=== PATIENT | male | born 1940 | race Two or more races ===

== ENCOUNTER 2023-02-14 23:18 | Inpatient (IN) | payer OTHER, MEDICAID ==
[~2023-02-14] VITALS: Ht 182.9 cm; Wt 66.5 kg
[2023-02-14 23:58] LABS: Basophils # (auto) 0 10 ^3/uL (0-0.2); Basophils % (auto) 0.5 % (0.0-2.0); Eosinophils # (auto) 0.3 10 ^3/uL (0-0.8); Eosinophils % (auto) 3.2 % (0.0-7.0); Hematocrit 36.5 % (41.0-53.0); Lymphocytes # (auto) 0.8 10 ^3/uL (0.4-5.4); Lymphocytes % (auto) 8.2 % (10.0-50.0); Mean Corpuscular Hemoglobin 31.1 pg (28.0-32.0); Mean Corpuscular Volume 94.4 fL (80.0-100.0); Monocytes # (auto) 0.7 10 ^3/uL (0-1.3); Monocytes % (auto) 7.1 % (0.0-12.0); Neutrophils # (auto) 7.7 10 ^3/uL (1.6-8.6); Nucleated Red Blood Cells % 0.2 %; Red Blood Cells 3.87 10^6/uL (4.5-5.90); White Blood Cell 9.5 10^3/uL (4.4-10.8)
[2023-02-15 00:08] LABS: Albumin 3.8 g/dL (3.4-5.0); BUN/Creatinine Ratio 23.3 (10.0-20.0); Calcium 9.4 mg/dL (8.5-10.1); Potassium 3.6 mmol/L (3.5-5.1)
[2023-02-15 00:11] LABS: Bilirubin, Total 0.5 mg/dL (0.2-1.0); Total Protein 8.8 g/dL (6.4-8.2)
[2023-02-15] MEDS ORDERED: SODIUM CHLORIDE 0.9% 1,000 ML IV ONE (05:00)
[2023-02-15] MEDS ORDERED: levoFLOXacin 750MG 150 ML IV ONE (05:00)
[2023-02-15] MEDS ORDERED: metroNIDAZOLE 500MG/100ML 100 ML IV ONE (05:00)
[2023-02-15] MEDS ORDERED: ACETAMINOPHEN 325 MG TAB PO PRN (06:00)
[2023-02-15] MEDS ORDERED: HYDROcodone-ACET 5/325MG TAB PO PRN (06:00)
[2023-02-15] MEDS ORDERED: MORPHINE SULFATE INJ 2 MG/ml SYRG IV PRN (06:00)
[2023-02-15] MEDS: metroNIDAZOLE 500MG/100ML 100 ML IV SCH ×3 (06:00→22:40)
[2023-02-15] MEDS ORDERED: ONDANSETRON HCL 4 MG/2 ML VIAL IV PRN (06:00)
[2023-02-15] MEDS ORDERED: NITROGLYCERIN 0.4 MG SL TAB SL PRN (06:00)
[2023-02-15] MEDS: SODIUM CHLORIDE 0.9% 1,000 ML IV SCH ×2 (06:34→22:40)
[2023-02-15 07:01] LABS: Basophils # (auto) 0 10 ^3/uL (0-0.2); Basophils % (auto) 0.4 % (0.0-2.0); Eosinophils # (auto) 0 10 ^3/uL (0-0.8); Eosinophils % (auto) 0.3 % (0.0-7.0); Hematocrit 31.2 % (41.0-53.0); Hemoglobin 10.6 g/dL (13.5-17.5); Lymphocytes # (auto) 0.2 10 ^3/uL (0.4-5.4); Lymphocytes % (auto) 3.9 % (10.0-50.0); Mean Corpuscular Hemoglobin 32.1 pg (28.0-32.0); Mean Corpuscular Hgb Conc. 33.9 g/dL (32.0-36.0); Mean Corpuscular Volume 94.5 fL (80.0-100.0); Monocytes # (auto) 0.2 10 ^3/uL (0-1.3); Monocytes % (auto) 5.1 % (0.0-12.0); Neutrophils # (auto) 3.9 10 ^3/uL (1.6-8.6); Neutrophils % (auto) 90.3 % (37.0-80.0); Nucleated Red Blood Cells % 0.1 %; White Blood Cell 4.3 10^3/uL (4.4-10.8)
[2023-02-15 07:28] LABS: Potassium 4.1 mmol/L (3.5-5.1)
[2023-02-15 07:50] LABS: Albumin 3.3 g/dL (3.4-5.0); Bilirubin, Total 0.5 mg/dL (0.2-1.0); Calcium 8.1 mg/dL (8.5-10.1); Total Protein 7.2 g/dL (6.4-8.2)
[2023-02-15] MEDS: FAMOTIDINE (10MG/ML) 2ML VL IV SCH ×2 (09:00→22:40)
[2023-02-16 05:01] LABS: Basophils # (auto) 0 10 ^3/uL (0-0.2); Eosinophils # (auto) 0.1 10 ^3/uL (0-0.8); Eosinophils % (auto) 5.2 % (0.0-7.0); Hematocrit 30.2 % (41.0-53.0); Hemoglobin 10.1 g/dL (13.5-17.5); Lymphocytes # (auto) 0.3 10 ^3/uL (0.4-5.4); Lymphocytes % (auto) 15.8 % (10.0-50.0); Mean Corpuscular Hemoglobin 31.7 pg (28.0-32.0); Mean Corpuscular Hgb Conc. 33.4 g/dL (32.0-36.0); Mean Corpuscular Volume 94.7 fL (80.0-100.0); Monocytes # (auto) 0.4 10 ^3/uL (0-1.3); Monocytes % (auto) 16.9 % (0.0-12.0); Neutrophils # (auto) 1.3 10 ^3/uL (1.6-8.6); Neutrophils % (auto) 61.1 % (37.0-80.0); Red Blood Cells 3.19 10^6/uL (4.5-5.90); Red Cell Distribution Width 13.2 % (11.8-14.3); White Blood Cell 2.2 10^3/uL (4.4-10.8)
[2023-02-16 05:31] LABS: Potassium 3.8 mmol/L (3.5-5.1)
[2023-02-16 05:42] LABS: Bilirubin, Total 0.6 mg/dL (0.2-1.0); Calcium 8.3 mg/dL (8.5-10.1); Total Protein 6.5 g/dL (6.4-8.2)
[2023-02-16] MEDS ORDERED: GASTROGRAFIN 30 ML SOL ONE (06:11)
[2023-02-16] MEDS: metroNIDAZOLE 500MG/100ML 100 ML IV SCH ×3 (07:26→22:01)
[2023-02-16] MEDS: FAMOTIDINE (10MG/ML) 2ML VL IV SCH ×2 (10:04→22:00)
[2023-02-16] MEDS ORDERED: CLON0.1T PO (15:24)
[2023-02-16] MEDS ORDERED: cefTRIAXone 1GM/50ML D5W 50 ML IV ONE (15:45)
[2023-02-16 15:56] LABS: Alcohol, Urine < 3.0 mg/dL (0-10); Amphetamine Screen, Urine NEGATIVE (NEGATIVE); Barbiturate Scree,Urine NEGATIVE (NEGATIVE); Benzodiazephine Screen, Urine NEGATIVE (NEGATIVE); Cannabinoid Screen, Urine NEGATIVE (NEGATIVE); Cocaine Screen, Urine NEGATIVE (NEGATIVE); Opiate Scree,Urine NEGATIVE (NEGATIVE); Phencyclidine Screen, Urine NEGATIVE (NEGATIVE)
[2023-02-16 16:15] VITALS: BP 185/63
[2023-02-16 16:44] LABS: Folate (Folic Acid) 20.28 ng/mL (5.38-24)
[2023-02-16] MEDS: hydrALAZINE HCL 20 MG/ML VL IV PRN (16:48)
[2023-02-16 17:00] VITALS: BP 185/63
[2023-02-16 21:19] LABS: Urine Bacteria NONE SEEN /hpf (None Seen); Urine Blood Negative /uL (Negative); Urine Specific Gravity 1.014 (1.001-1.035); Urine WBC 3 /hpf (0 - 3)
[2023-02-16 22:00] VITALS: BP 159/61
[2023-02-17 03:19] LABS: Urine Bacteria NONE SEEN /hpf (None Seen); Urine Blood Negative /uL (Negative); Urine Specific Gravity 1.008 (1.001-1.035); Urine WBC 1 /hpf (0 - 3)
[2023-02-17 05:00] VITALS: BP 151/61
[2023-02-17] MEDS: hydrALAZINE HCL 20 MG/ML VL IV PRN (05:00)
[2023-02-17] MEDS: metroNIDAZOLE 500MG/100ML 100 ML IV SCH (05:37)
[2023-02-17] MEDS: FAMOTIDINE (10MG/ML) 2ML VL IV SCH (08:42)
[2023-02-17 09:00] VITALS: BP 148/77
[2023-02-17] MEDS ORDERED: cefTRIAXone 1GM/50ML D5W 50 ML IV SCH (09:00)
[2023-02-17 09:01] LABS: Basophils # (auto) 0 10 ^3/uL (0-0.2); Basophils % (auto) 0.6 % (0.0-2.0); Eosinophils # (auto) 0.1 10 ^3/uL (0-0.8); Eosinophils % (auto) 3.2 % (0.0-7.0); Hematocrit 36.9 % (41.0-53.0); Hemoglobin 12.2 g/dL (13.5-17.5); Lymphocytes # (auto) 0.5 10 ^3/uL (0.4-5.4); Lymphocytes % (auto) 14.2 % (10.0-50.0); Mean Corpuscular Hemoglobin 31.3 pg (28.0-32.0); Mean Corpuscular Hgb Conc. 33.2 g/dL (32.0-36.0); Mean Corpuscular Volume 94.3 fL (80.0-100.0); Monocytes # (auto) 0.4 10 ^3/uL (0-1.3); Monocytes % (auto) 10.9 % (0.0-12.0); Neutrophils # (auto) 2.5 10 ^3/uL (1.6-8.6); Neutrophils % (auto) 71.1 % (37.0-80.0); Nucleated Red Blood Cells % 0.3 %; Red Blood Cells 3.91 10^6/uL (4.5-5.90); Red Cell Distribution Width 13.1 % (11.8-14.3); White Blood Cell 3.5 10^3/uL (4.4-10.8)
[2023-02-17 09:45] LABS: Potassium 3.8 mmol/L (3.5-5.1)
[2023-02-17 09:55] LABS: Calcium 8.9 mg/dL (8.5-10.1); Magnesium 1.9 mg/dL (1.6-2.6)
[2023-02-17] MEDS ORDERED: LEVO500T31 PO (10:03)
[2023-02-17] MEDS ORDERED: LACTCAP35 OR (10:04)
[2023-02-17] MEDS ORDERED: METR500T PO (10:04)
[2023-02-17 11:50] VITALS: BP 148/97
== END 2023-02-17 12:55 | disposition home or self-care (01) | DRG 392 ==
LOC: ER 23:18 → EDSEX 23:18 → EDBD 23:18 → OVERFLOW 02-15 06:01 → CENTRAL 02-16 16:15
PROVIDERS: ADMIT Nurse Practitioner Family; ATTEND Internal Medicine
DX: K52.9 Noninfective gastroenteritis and colitis, unspecified (principal); E86.0 Dehydration; D64.9 Anemia, unspecified; I34.1 Nonrheumatic mitral (valve) prolapse; N18.9 Chronic kidney disease, unspecified; R79.89 Other specified abnormal findings of blood chemistry; R73.9 Hyperglycemia, unspecified; Z85.038 Personal history of other malignant neoplasm of large intestine; Z88.0 Allergy status to penicillin; Z88.1 Allergy status to other antibiotic agents
CPT/HCPCS: 36415; 71045; 71250; 74176; 80048; 80053; 80307; 81001; 82105; 82378; 82607; 82746; 83605; 83735; 83880; 84154; 84443; 84484; 85025; 85048; 86301; 87045; 87427; 87493; 93005; 96365; 96367; 97163; G0378; J0696; J1956; J2405; J3490

== ENCOUNTER → 2023-03-06 | Emergency (ER) | payer OTHER, MEDICAID ==
[~2023-03-06] VITALS: Ht 165.1 cm; Wt 63.6 kg
[~2023-03-06] MED LIST: CLON0.1T PO; LACTCAP35 OR; LEVO500T31 PO; METR500T PO; PRED20TA2 PO; SODIUM CHLORIDE 0.9% 1,000 ML IV ONE; predniSONE 20 MG TAB PO ONE
[2023-03-06 10:01] VITALS: BP 176/53
[2023-03-06 10:18] LABS: Basophils # (auto) 0 10 ^3/uL (0-0.2); Basophils % (auto) 1.1 % (0.0-2.0); Eosinophils # (auto) 0.2 10 ^3/uL (0-0.8); Eosinophils % (auto) 4.9 % (0.0-7.0); Hemoglobin 11.1 g/dL (13.5-17.5); Lymphocytes % (auto) 25.3 % (10.0-50.0); Mean Corpuscular Hgb Conc. 32.7 g/dL (32.0-36.0); Mean Corpuscular Volume 94.7 fL (80.0-100.0); Monocytes # (auto) 0.5 10 ^3/uL (0-1.3); Monocytes % (auto) 13.1 % (0.0-12.0); Neutrophils # (auto) 2.1 10 ^3/uL (1.6-8.6); Neutrophils % (auto) 55.6 % (37.0-80.0); Nucleated Red Blood Cells % 0.2 %; Red Blood Cells 3.59 10^6/uL (4.5-5.90); Red Cell Distribution Width 13.4 % (11.8-14.3); White Blood Cell 3.8 10^3/uL (4.4-10.8)
[2023-03-06 10:44] LABS: Albumin 3.4 g/dL (3.4-5.0); Calcium 8.5 mg/dL (8.5-10.1); Potassium 4.4 mmol/L (3.5-5.1)
[2023-03-06 10:47] LABS: BUN/Creatinine Ratio 21.9 (10.0-20.0); Bilirubin, Total 0.4 mg/dL (0.2-1.0); Total Protein 7.5 g/dL (6.4-8.2)
[2023-03-06 16:46] LABS: Basophils # (auto) 0 10 ^3/uL (0-0.2); Eosinophils # (auto) 0.2 10 ^3/uL (0-0.8); Eosinophils % (auto) 4.3 % (0.0-7.0); Hematocrit 34.3 % (41.0-53.0); Hemoglobin 11.1 g/dL (13.5-17.5); Lymphocytes % (auto) 19.6 % (10.0-50.0); Mean Corpuscular Hemoglobin 30.7 pg (28.0-32.0); Mean Corpuscular Hgb Conc. 32.5 g/dL (32.0-36.0); Mean Corpuscular Volume 94.5 fL (80.0-100.0); Monocytes # (auto) 0.3 10 ^3/uL (0-1.3); Neutrophils # (auto) 3.4 10 ^3/uL (1.6-8.6); Neutrophils % (auto) 69.1 % (37.0-80.0); Nucleated Red Blood Cells % 0.1 %; Red Blood Cells 3.63 10^6/uL (4.5-5.90); Red Cell Distribution Width 13.1 % (11.8-14.3); White Blood Cell 4.9 10^3/uL (4.4-10.8)
== END | disposition home or self-care (01) ==
LOC: EDUNIT# 09:27 → ER 09:28 → EDBD 09:28
DX: K52.89 Other specified noninfective gastroenteritis and colitis (principal); K92.1 Melena; Z88.0 Allergy status to penicillin; Z88.1 Allergy status to other antibiotic agents; Z79.899 Other long term (current) drug therapy
CPT/HCPCS: 36415; 74176; 80053; 85025; 93005; 96360; 99284; J7030; J7512

== ENCOUNTER → 2023-07-30 | Outpatient (CLI) | payer OTHER, MEDICAID ==
[~2023-07-30] MED LIST changes: +CYAN500S8 SL; +FLUC200T PO; +PANT40TA2 PO; -SODIUM CHLORIDE 0.9% 1,000 ML IV ONE; -predniSONE 20 MG TAB PO ONE
[2023-07-30 12:25] LABS: Basophils # (auto) 0.1 10 ^3/uL (0-0.2); Basophils % (auto) 1.4 % (0.0-2.0); Eosinophils # (auto) 0.3 10 ^3/uL (0-0.8); Eosinophils % (auto) 6.2 % (0.0-7.0); Hematocrit 32.3 % (41.0-53.0); Hemoglobin 10.6 g/dL (13.5-17.5); Lymphocytes # (auto) 1.4 10 ^3/uL (0.4-5.4); Lymphocytes % (auto) 25.2 % (10.0-50.0); Mean Corpuscular Hemoglobin 30.2 pg (28.0-32.0); Mean Corpuscular Hgb Conc. 32.8 g/dL (32.0-36.0); Monocytes # (auto) 0.7 10 ^3/uL (0-1.3); Monocytes % (auto) 12.3 % (0.0-12.0); Neutrophils # (auto) 2.9 10 ^3/uL (1.6-8.6); Neutrophils % (auto) 54.9 % (37.0-80.0); Nucleated Red Blood Cells % 0.2 %; Red Blood Cells 3.51 10^6/uL (4.5-5.90); Red Cell Distribution Width 15.5 % (11.8-14.3); White Blood Cell 5.4 10^3/uL (4.4-10.8)
[2023-07-30 12:56] LABS: Alanine Aminotransferase < 9 U/L (7-40); Albumin 4.3 g/dL (3.2-4.8); Alkaline Phosphatase 85 U/L (46-116); Anion Gap 8 (5-15); Aspartate Aminotransferase 14 U/L (13-40); BUN/Creatinine Ratio 14.5 (10.0-20.0); Bilirubin, Total 0.7 mg/dL (0.2-1.0); Blood Urea Nitrogen 18 mg/dL (9-23); Calcium 9.6 mg/dL (8.5-10.1); Carbon Dioxide 26 mmol/L (20-30); Chloride 104 mmol/L (98-107); Glucose 87 mg/dL (74-106); Potassium 4.4 mmol/L (3.5-5.1); Sodium 138 mmol/L (136-145)
[2023-07-30 12:57] LABS: Total Protein 7.7 g/dL (5.7-8.2)
== END | disposition home or self-care (01) ==
LOC: LAB 12:04
PROVIDERS: ATTEND Internal Medicine Hematology & Oncology
DX: C18.9 Malignant neoplasm of colon, unspecified (principal); J44.9 Chronic obstructive pulmonary disease, unspecified; I10 Essential (primary) hypertension; Q39.3 Congenital stenosis and stricture of esophagus
CPT/HCPCS: 36415; 80053; 82378; 83615; 85025

== ENCOUNTER 2023-09-17 12:31 | Emergency (ER) | payer OTHER, MEDICAID ==
[~2023-09-17] VITALS: Ht 177.8 cm; Wt 77.0 kg
[2023-09-17 13:58] LABS: Basophils # (auto) 0 10 ^3/uL (0-0.2); Eosinophils # (auto) 0.3 10 ^3/uL (0-0.8); Eosinophils % (auto) 6.6 % (0.0-7.0); Hemoglobin 11.6 g/dL (13.5-17.5); Lymphocytes # (auto) 1.1 10 ^3/uL (0.4-5.4); Lymphocytes % (auto) 23.6 % (10.0-50.0); Mean Corpuscular Hemoglobin 30.4 pg (28.0-32.0); Mean Corpuscular Hgb Conc. 32.2 g/dL (32.0-36.0); Mean Corpuscular Volume 94.4 fL (80.0-100.0); Monocytes # (auto) 0.5 10 ^3/uL (0-1.3); Neutrophils # (auto) 2.7 10 ^3/uL (1.6-8.6); Neutrophils % (auto) 57.8 % (37.0-80.0); Nucleated Red Blood Cells % 0.1 %; Red Blood Cells 3.81 10^6/uL (4.5-5.90); Red Cell Distribution Width 15.3 % (11.8-14.3); White Blood Cell 4.7 10^3/uL (4.4-10.8)
[2023-09-17 14:17] LABS: Alanine Aminotransferase 13 U/L (7-40); Albumin 4.5 g/dL (3.2-4.8); Alkaline Phosphatase 76 U/L (46-116); Anion Gap 8 (5-15); Aspartate Aminotransferase 15 U/L (13-40); BUN/Creatinine Ratio 12.5 (10.0-20.0); Bilirubin, Total 0.6 mg/dL (0.2-1.0); Blood Urea Nitrogen 15 mg/dL (9-23); Calcium 9.6 mg/dL (8.5-10.1); Carbon Dioxide 25 mmol/L (20-30); Chloride 106 mmol/L (98-107); Glucose 85 mg/dL (74-106); Potassium 4.6 mmol/L (3.5-5.1); Sodium 139 mmol/L (136-145); Total Protein 7.9 g/dL (5.7-8.2)
[2023-09-17] MEDS ORDERED: IOHEXOL 350 MG/ML 100ML IJ ONE (15:55)
[2023-09-17 19:33] VITALS: BP 147/62; TEMP 98.6
[2023-09-17 19:40] VITALS: PULSE 65; RESP 18; O2SAT 98
[2023-09-17 19:48] LABS: Urine Amorphous Crystal FEW /hpf (None Seen); Urine Bacteria NONE SEEN /hpf (None Seen); Urine Blood Negative /uL (Negative); Urine Clarity Clear (Clear); Urine Color Colorless (Yellow); Urine Protein, UAD Negative (Negative); Urine Specific Gravity 1.007 (1.001-1.035); Urine Urobilinogen Normal (Negative); Urine WBC 13 /hpf (0 - 3)
== END 2023-09-17 23:51 | disposition home or self-care (01) ==
LOC: ER 12:31
DX: R79.89 Other specified abnormal findings of blood chemistry (principal); M79.89 Other specified soft tissue disorders; M79.662 Pain in left lower leg; I10 Essential (primary) hypertension; J44.9 Chronic obstructive pulmonary disease, unspecified; Z85.9 Personal history of malignant neoplasm, unspecified; Z98.890 Other specified postprocedural states; Z88.8 Allergy status to other drugs, medicaments and biological substances; Z79.899 Other long term (current) drug therapy
CPT/HCPCS: 36415; 71275; 80053; 81001; 85025; 85379; 93971; 99285; Q9967

== ENCOUNTER → 2023-10-20 | Outpatient (CLI) | payer OTHER, MEDICAID ==
[2023-10-20 11:32] LABS: Basophils # (auto) 0 10 ^3/uL (0-0.2); Basophils % (auto) 0.9 % (0.0-2.0); Eosinophils # (auto) 0.2 10 ^3/uL (0-0.8); Eosinophils % (auto) 4.1 % (0.0-7.0); Hematocrit 35.4 % (41.0-53.0); Hemoglobin 11.7 g/dL (13.5-17.5); Lymphocytes % (auto) 19.1 % (10.0-50.0); Mean Corpuscular Hemoglobin 30.7 pg (28.0-32.0); Mean Corpuscular Hgb Conc. 33.2 g/dL (32.0-36.0); Mean Corpuscular Volume 92.6 fL (80.0-100.0); Monocytes # (auto) 0.5 10 ^3/uL (0-1.3); Monocytes % (auto) 9.9 % (0.0-12.0); Neutrophils # (auto) 3.3 10 ^3/uL (1.6-8.6); Red Blood Cells 3.83 10^6/uL (4.5-5.90); Red Cell Distribution Width 14.9 % (11.8-14.3)
[2023-10-20 12:29] LABS: Alkaline Phosphatase 82 U/L (46-116); Anion Gap 8 (5-15); BUN/Creatinine Ratio 12.6 (10.0-20.0); Blood Urea Nitrogen 17 mg/dL (9-23); Calcium 9.7 mg/dL (8.5-10.1); Carbon Dioxide 25 mmol/L (20-30); Chloride 105 mmol/L (98-107); Glucose 82 mg/dL (74-106); LDL Cholesterol 108 mg/dL (< 100); Sodium 138 mmol/L (136-145); Triglycerides 88 mg/dL (< 150)
[2023-10-20 12:30] LABS: Albumin 4.5 g/dL (3.2-4.8); Aspartate Aminotransferase 17 U/L (13-40); Bilirubin, Total 0.8 mg/dL (0.2-1.0); Cholesterol 150 mg/dL (< 200); HDL Cholesterol 37 mg/dL (40-59)
[2023-10-20 12:31] LABS: Total Protein 8.2 g/dL (5.7-8.2)
[2023-10-20 12:37] LABS: Thyroid Stimulating Hormone 2.22 uIU/mL (0.55-4.78)
[2023-10-20 12:59] LABS: Alanine Aminotransferase < 9 U/L (7-40)
[2023-10-20 13:48] LABS: Prostate Specific Antigen 0.13 ng/mL (0.0-4.0)
[2023-10-20 13:52] LABS: Free T4 (Free Thyroxine) 1.03 ng/dL (0.89-1.76)
[2023-10-20 13:53] LABS: Carcinoembryonic Antigen 2.56 ng/mL (<=5.0)
== END | disposition home or self-care (01) ==
LOC: LAB 10:58
PROVIDERS: ATTEND Nurse Practitioner Family
DX: C18.9 Malignant neoplasm of colon, unspecified (principal); I10 Essential (primary) hypertension; J44.9 Chronic obstructive pulmonary disease, unspecified; Q39.3 Congenital stenosis and stricture of esophagus; D64.9 Anemia, unspecified; R35.1 Nocturia
CPT/HCPCS: 36415; 80053; 80061; 82378; 83615; 84153; 84439; 84443; 85025

== ENCOUNTER 2023-11-10 14:57 | Inpatient (IN) | payer OTHER, MEDICAID ==
[~2023-11-10] VITALS: Ht 177.8 cm; Wt 63.7 kg
[2023-11-10 16:30] VITALS: BP 145/54; PULSE 74; RESP 17; TEMP 96.3; O2SAT 96
[2023-11-10] MEDS ORDERED: ACETAMINOPHEN 325 MG TAB PO PRN (17:15)
[2023-11-10] MEDS ORDERED: LORazepam 0.5 MG TAB PO PRN (17:15)
[2023-11-10] MEDS ORDERED: MORPHINE SULFATE INJ 2 MG/ml SYRG IV PRN (17:15)
[2023-11-10] MEDS ORDERED: ONDANSETRON HCL 4 MG/2 ML VIAL IV PRN (17:15)
[2023-11-10] MEDS ORDERED: HYDROcodone-ACET 5/325MG TAB PO PRN (17:15)
[2023-11-10] MEDS: SODIUM CHLORIDE 0.9% 1,000 ML IV SCH (18:19)
[2023-11-10] MEDS: MULTIPLE VITAMINS W/ MINERALS TAB PO ONE (18:19)
[2023-11-10] MEDS: ENOXAPARIN SOD 40 MG/0.4 ML SYRINGE SC SCH (18:19)
[2023-11-10] MEDS: levoFLOXacin 500 MG TAB PO SCH (18:19)
[2023-11-10 18:49] LABS: Urine Bacteria NONE SEEN /hpf (None Seen); Urine Blood Negative /uL (Negative); Urine Clarity Clear (Clear); Urine Color Colorless (Yellow); Urine Protein, UAD Negative (Negative); Urine Specific Gravity 1.007 (1.001-1.035); Urine Urobilinogen Normal (Negative); Urine WBC 3 /hpf (0 - 3); Urine pH 6.5 (5.0-8.0)
[2023-11-10 20:51] VITALS: BP 145/54; PULSE 74; RESP 17; TEMP 97.6; O2SAT 97
[2023-11-10 22:00] VITALS: BP 143/59; PULSE 72; RESP 16; TEMP 98.1; O2SAT 97
[2023-11-10] MEDS: FLORASTOR (S. BOULARDII) 250 MG CAP PO SCH (22:14)
[2023-11-10] MEDS: metroNIDAZOLE 500 MG TAB PO SCH (22:15)
[2023-11-11] MEDS: hydrALAZINE HCL 25 MG TAB PO PRN (04:39)
[2023-11-11 05:00] VITALS: BP 173/61; PULSE 75; RESP 16; TEMP 97.3; O2SAT 96
[2023-11-11 05:52] VITALS: BP 155/59; PULSE 71
[2023-11-11 06:57] LABS: Anion Gap 5 (5-15); Carbon Dioxide 25 mmol/L (20-30); Chloride 108 mmol/L (98-107); Potassium 4.1 mmol/L (3.5-5.1); Sodium 138 mmol/L (136-145)
[2023-11-11 06:58] LABS: Calcium 8.5 mg/dL (8.7-10.4)
[2023-11-11 07:00] LABS: Basophils # (auto) 0.1 10 ^3/uL (0-0.2); Basophils % (auto) 1.6 % (0.0-2.0); Eosinophils # (auto) 0.2 10 ^3/uL (0-0.8); Eosinophils % (auto) 7.7 % (0.0-7.0); Hematocrit 32.9 % (41.0-53.0); Hemoglobin 10.8 g/dL (13.5-17.5); Lymphocytes # (auto) 0.7 10 ^3/uL (0.4-5.4); Mean Corpuscular Hemoglobin 30.6 pg (28.0-32.0); Mean Corpuscular Hgb Conc. 32.8 g/dL (32.0-36.0); Mean Corpuscular Volume 93.3 fL (80.0-100.0); Monocytes # (auto) 0.5 10 ^3/uL (0-1.3); Monocytes % (auto) 15.5 % (0.0-12.0); Neutrophils # (auto) 1.7 10 ^3/uL (1.6-8.6); Neutrophils % (auto) 53.2 % (37.0-80.0); Nucleated Red Blood Cells % 0.1 %; Red Blood Cells 3.53 10^6/uL (4.5-5.90); Red Cell Distribution Width 13.9 % (11.8-14.3); White Blood Cell 3.2 10^3/uL (4.4-10.8)
[2023-11-11 07:03] LABS: BUN/Creatinine Ratio 11.7 (10.0-20.0); Blood Urea Nitrogen 16 mg/dL (9-23); Glucose 93 mg/dL (74-106)
[2023-11-11] MEDS: MULTIPLE VITAMINS W/ MINERALS TAB PO SCH (09:13)
[2023-11-11] MEDS: cloNIDine HCL 0.1 MG TAB PO SCH (09:39)
[2023-11-11] MEDS ORDERED: LEVO500T91 PO (13:58)
[2023-11-11] MEDS ORDERED: SACC250C PO (13:58)
[2023-11-11] MEDS ORDERED: METR-344 PO (13:58)
[2023-11-11 15:57] VITALS: BP 134/56; TEMP 36.3
== END 2023-11-11 16:40 | disposition home or self-care (01) | DRG 392 ==
LOC: TELE-CENTR 16:15 → CENTRAL 17:11
PROVIDERS: ADMIT Internal Medicine; ATTEND Internal Medicine
DX: K52.9 Noninfective gastroenteritis and colitis, unspecified (principal); D61.818 Other pancytopenia; I10 Essential (primary) hypertension; R13.10 Dysphagia, unspecified; Z88.0 Allergy status to penicillin; Z88.1 Allergy status to other antibiotic agents; Z88.6 Allergy status to analgesic agent; Z86.010 Personal history of colon polyps; Z79.899 Other long term (current) drug therapy; Z87.19 Personal history of other diseases of the digestive system; Z85.038 Personal history of other malignant neoplasm of large intestine
CPT/HCPCS: 36415; 76700; 80048; 81001; 83735; 85025; 85048; 87045; 87427; 97163; G0378

== ENCOUNTER → 2023-11-19 | Outpatient (CLI) | payer OTHER, MEDICAID ==
[~2023-11-19] MED LIST changes: -FLUC200T PO; -LACTCAP35 OR; -LEVO500T31 PO; +LEVO500T91 PO; +METR-344 PO; -METR500T PO; -PRED20TA2 PO; +SACC250C PO
[2023-11-19 13:05] LABS: Basophils # (auto) 0.1 10 ^3/uL (0-0.2); Basophils % (auto) 1.3 % (0.0-2.0); Eosinophils # (auto) 0.3 10 ^3/uL (0-0.8); Eosinophils % (auto) 5.9 % (0.0-7.0); Hematocrit 35.1 % (41.0-53.0); Hemoglobin 11.4 g/dL (13.5-17.5); Lymphocytes # (auto) 1.2 10 ^3/uL (0.4-5.4); Lymphocytes % (auto) 26.2 % (10.0-50.0); Mean Corpuscular Hemoglobin 30.5 pg (28.0-32.0); Mean Corpuscular Hgb Conc. 32.6 g/dL (32.0-36.0); Mean Corpuscular Volume 93.6 fL (80.0-100.0); Monocytes # (auto) 0.5 10 ^3/uL (0-1.3); Monocytes % (auto) 10.2 % (0.0-12.0); Neutrophils # (auto) 2.7 10 ^3/uL (1.6-8.6); Neutrophils % (auto) 56.4 % (37.0-80.0); Nucleated Red Blood Cells % 0.1 %; Red Blood Cells 3.75 10^6/uL (4.5-5.90); Red Cell Distribution Width 14.4 % (11.8-14.3); White Blood Cell 4.7 10^3/uL (4.4-10.8)
[2023-11-19 13:39] LABS: Albumin 4.3 g/dL (3.2-4.8); Alkaline Phosphatase 62 U/L (46-116); Anion Gap 7 (5-15); Aspartate Aminotransferase 16 U/L (13-40); BUN/Creatinine Ratio 14.5 (10.0-20.0); Blood Urea Nitrogen 16 mg/dL (9-23); Carbon Dioxide 27 mmol/L (20-30); Chloride 106 mmol/L (98-107); Glucose 76 mg/dL (74-106); Potassium 3.7 mmol/L (3.5-5.1); Sodium 140 mmol/L (136-145)
[2023-11-19 13:40] LABS: Bilirubin, Total 0.6 mg/dL (0.2-1.0); Total Protein 7.4 g/dL (5.7-8.2)
[2023-11-19 13:42] LABS: Alanine Aminotransferase < 9 U/L (7-40)
== END | disposition home or self-care (01) ==
LOC: LAB 12:40
PROVIDERS: ATTEND Nurse Practitioner Family
DX: C18.9 Malignant neoplasm of colon, unspecified (principal); I10 Essential (primary) hypertension; J44.9 Chronic obstructive pulmonary disease, unspecified; Q39.3 Congenital stenosis and stricture of esophagus; K59.04 Chronic idiopathic constipation; D64.9 Anemia, unspecified
CPT/HCPCS: 36415; 80053; 82378; 83615; 85025

== ENCOUNTER 2024-01-29 09:56 | Day surgery (SDC) | payer OTHER, MEDICAID ==
[2024-01-27 13:57] LABS: Albumin 4.3 g/dL (3.2-4.8); Alkaline Phosphatase 68 U/L (46-116); Anion Gap 6 (5-15); Aspartate Aminotransferase 17 U/L (13-40); BUN/Creatinine Ratio 19.7 (10.0-20.0); Blood Urea Nitrogen 25 mg/dL (9-23); Calcium 9.7 mg/dL (8.5-10.1); Carbon Dioxide 29 mmol/L (20-30); Chloride 103 mmol/L (98-107); Glucose 98 mg/dL (74-106); Potassium 3.9 mmol/L (3.5-5.1); Sodium 138 mmol/L (136-145)
[2024-01-27 13:58] LABS: Basophils # (auto) 0 10 ^3/uL (0-0.2); Basophils % (auto) 0.9 % (0.0-2.0); Bilirubin, Total 0.6 mg/dL (0.2-1.0); Eosinophils # (auto) 0.2 10 ^3/uL (0-0.8); Eosinophils % (auto) 4.9 % (0.0-7.0); Hemoglobin 10.9 g/dL (13.5-17.5); Lymphocytes # (auto) 1.2 10 ^3/uL (0.4-5.4); Lymphocytes % (auto) 23.9 % (10.0-50.0); Mean Corpuscular Volume 93.8 fL (80.0-100.0); Monocytes # (auto) 0.7 10 ^3/uL (0-1.3); Monocytes % (auto) 13.4 % (0.0-12.0); Neutrophils # (auto) 2.9 10 ^3/uL (1.6-8.6); Neutrophils % (auto) 56.9 % (37.0-80.0); Nucleated Red Blood Cells % 0.2 %; Red Blood Cells 3.52 10^6/uL (4.5-5.90); Red Cell Distribution Width 14.6 % (11.8-14.3); Total Protein 7.7 g/dL (5.7-8.2); White Blood Cell 5.1 10^3/uL (4.4-10.8)
[2024-01-27 14:07] LABS: Alanine Aminotransferase < 9 U/L (7-40)
[2024-01-27 14:51] LABS: INR 1.04 (0.9-1.15); Partial Thromboplastin Time 30.3 SEC (24.5-34.5)
[~2024-01-29] VITALS: Ht 177.8 cm; Wt 62.6 kg
[~2024-01-29 09:56] MED LIST changes: +CETI-83 OR; -LEVO500T91 PO; -METR-344 PO; +OLME5TAB22 PO; -PANT40TA2 PO; -SACC250C PO
[2024-01-29] MEDS ORDERED: MIDAZOLAM HCL 5 MG/ML-1ML VIAL ONE (10:13)
[2024-01-29] MEDS ORDERED: LIDOCAINE VISCOUS 2% 15ML UD ONE (10:13)
[2024-01-29] MEDS ORDERED: SODIUM CHLORIDE LOCK 10 ML ONE (10:13)
[2024-01-29] MEDS ORDERED: fentaNYL CITRATE 100 MCG/2 ML VL ONE (10:14)
[2024-01-29] MEDS ORDERED: diphenhdrAMINE HCL 50 MG/1 ML VL ONE (10:14)
[2024-01-29] MEDS: MIDAZOLAM HCL 5 MG/ML-1ML VIAL IV ONE (13:08)
[2024-01-29 13:24] VITALS: TEMP 97.1
[2024-01-29 15:30] VITALS: BP 154/56; PULSE 67; RESP 13; O2SAT 96
== END 2024-01-29 14:15 | disposition home or self-care (01) ==
LOC: GI 09:56
PROVIDERS: ATTEND Internal Medicine Gastroenterology
DX: R13.12 Dysphagia, oropharyngeal phase (principal); K29.50 Unspecified chronic gastritis without bleeding; K20.90 Esophagitis, unspecified without bleeding; K22.5 Diverticulum of esophagus, acquired; K22.89 Other specified disease of esophagus; K29.80 Duodenitis without bleeding; K22.2 Esophageal obstruction; K25.9 Gastric ulcer, unspecified as acute or chronic, without hemorrhage or perforation; I10 Essential (primary) hypertension; J44.9 Chronic obstructive pulmonary disease, unspecified; Z85.038 Personal history of other malignant neoplasm of large intestine; Z79.899 Other long term (current) drug therapy; Z98.41 Cataract extraction status, right eye; Z98.42 Cataract extraction status, left eye; Z98.890 Other specified postprocedural states; Z88.8 Allergy status to other drugs, medicaments and biological substances; Z88.6 Allergy status to analgesic agent; Z88.1 Allergy status to other antibiotic agents; Z88.0 Allergy status to penicillin
CPT/HCPCS: 36415; 43239; 43450; 80053; 85025; 85610; 85730; 88305; 88342; J1200; J2250; J3010; J7030

== ENCOUNTER 2024-06-02 09:25 | Inpatient (IN) | payer OTHER, MEDICAID ==
[~2024-06-02] VITALS: Ht 179.1 cm; Wt 73.2 kg
[2024-06-02 13:54] LABS: Basophils # (auto) 0 10 ^3/uL (0-0.2); Basophils % (auto) 1.1 % (0.0-2.0); Eosinophils # (auto) 0.1 10 ^3/uL (0-0.8); Eosinophils % (auto) 3.1 % (0.0-7.0); Hematocrit 35.4 % (41.0-53.0); Hemoglobin 11.8 g/dL (13.5-17.5); Lymphocytes # (auto) 1.1 10 ^3/uL (0.4-5.4); Lymphocytes % (auto) 25.2 % (10.0-50.0); Mean Corpuscular Hemoglobin 31.4 pg (28.0-32.0); Mean Corpuscular Hgb Conc. 33.5 g/dL (32.0-36.0); Mean Corpuscular Volume 93.9 fL (80.0-100.0); Monocytes # (auto) 0.5 10 ^3/uL (0-1.3); Neutrophils # (auto) 2.7 10 ^3/uL (1.6-8.6); Neutrophils % (auto) 59.6 % (37.0-80.0); Nucleated Red Blood Cells % 0.1 %; Platelet Count (auto) 147 10^3/uL (140-450); Red Blood Cells 3.77 10^6/uL (4.5-5.90); Red Cell Distribution Width 14.7 % (11.8-14.3); White Blood Cell 4.5 10^3/uL (4.4-10.8)
[2024-06-02 14:15] LABS: INR 1.1 (0.9-1.15); Prothrombin Time 11.6 sec (9.3-11.8)
[2024-06-02] MEDS ORDERED: ONDANSETRON HCL 4 MG/2 ML VIAL IV PRN (15:00)
[2024-06-02] MEDS ORDERED: OLMESARTAN MEDOXOMIL 5 MG PO SCH (15:00)
[2024-06-02] MEDS ORDERED: HYDROmorphone HCL 2 MG/ML VL/or syr IV PRN (15:00)
[2024-06-02] MEDS ORDERED: HYDROcodone-ACET 5/325MG TAB PO PRN (15:00)
[2024-06-02] MEDS ORDERED: ACETAMINOPHEN 325 MG TAB PO PRN (15:00)
[2024-06-02] MEDS: D5W/LACTATED RINGERS 1,000 ML IV ONE (15:49)
[2024-06-02] MEDS: GLUCAGON EMERG KIT 1mg/1ml IV ONE (16:05)
[2024-06-02] MEDS: PANTOPRAZOLE 40 MG/10 ML VIAL INJ IV ONE (16:06)
[2024-06-02] MEDS: LOSARTAN POTASSIUM 50 MG TAB PO SCH (16:08)
[2024-06-02 20:58] VITALS: BP 180/74; PULSE 66; RESP 18; TEMP 97.4; O2SAT 98
[2024-06-02 21:03] VITALS: PULSE 66; RESP 18; O2SAT 98
[2024-06-02] MEDS: SODIUM CHLOR 0.9% PF (SALINE LOCK) 10ML VIAL/SYR IV SCH (22:16)
[2024-06-03] VITALS (9 sets, daily range): BP systolic 135–163; BP diastolic 45–72; PULSE 52–94; RESP 12–19; TEMP 97.6–98.5; O2SAT 94–100
[2024-06-03] MEDS: CYANOCOBALAMIN 500 MCG SL SCH (06:33)
[2024-06-03 09:54] LABS: Basophils # (auto) 0 10 ^3/uL (0-0.2); Eosinophils # (auto) 0.1 10 ^3/uL (0-0.8); Eosinophils % (auto) 3.8 % (0.0-7.0); Hematocrit 35.8 % (41.0-53.0); Hemoglobin 11.8 g/dL (13.5-17.5); Lymphocytes # (auto) 0.8 10 ^3/uL (0.4-5.4); Lymphocytes % (auto) 20.9 % (10.0-50.0); Mean Corpuscular Hemoglobin 31.5 pg (28.0-32.0); Mean Corpuscular Volume 95.4 fL (80.0-100.0); Monocytes # (auto) 0.3 10 ^3/uL (0-1.3); Monocytes % (auto) 8.2 % (0.0-12.0); Neutrophils # (auto) 2.6 10 ^3/uL (1.6-8.6); Neutrophils % (auto) 66.1 % (37.0-80.0); Nucleated Red Blood Cells % 0.1 %; Platelet Count (auto) 135 10^3/uL (140-450); Red Blood Cells 3.76 10^6/uL (4.5-5.90); Red Cell Distribution Width 14.5 % (11.8-14.3)
[2024-06-03 10:06] LABS: Chloride 108 mmol/L (98-107); Potassium 4.3 mmol/L (3.5-5.1); Sodium 138 mmol/L (136-145)
[2024-06-03 10:07] LABS: Anion Gap 5 (5-15); Calcium 9.7 mg/dL (8.7-10.4); Carbon Dioxide 25 mmol/L (20-30)
[2024-06-03 10:12] LABS: Blood Urea Nitrogen 15 mg/dL (9-23); Glucose 73 mg/dL (74-106)
[2024-06-03] MEDS: PANTOPRAZOLE 40 MG/10 ML VIAL INJ IV ONE (13:01)
[2024-06-03] MEDS ORDERED: FERR325T20 PO (14:16)
[2024-06-03] MEDS ORDERED: CETI10TA2 PO (14:16)
[2024-06-03] MEDS ORDERED: MIDAZOLAM HCL 2MG/2ML 2ml VIAL (1mg/ml) ONE (16:23)
[2024-06-03] MEDS ORDERED: PROPOFOL 10 MG/ML 20 ML IV ONE (16:37)
[2024-06-03] MEDS ORDERED: ONDANSETRON HCL 4 MG/2 ML VIAL IV ONE (17:00)
[2024-06-04 01:00] VITALS: BP 142/62; PULSE 55; RESP 16; TEMP 98.1; O2SAT 96
[2024-06-04 05:00] VITALS: BP 151/71; PULSE 55; RESP 16; TEMP 97.9; O2SAT 96
[2024-06-04 06:49] LABS: Basophils # (auto) 0 10 ^3/uL (0-0.2); Basophils % (auto) 0.9 % (0.0-2.0); Eosinophils # (auto) 0.2 10 ^3/uL (0-0.8); Eosinophils % (auto) 4.8 % (0.0-7.0); Hematocrit 37.3 % (41.0-53.0); Hemoglobin 12.5 g/dL (13.5-17.5); Lymphocytes # (auto) 1.2 10 ^3/uL (0.4-5.4); Lymphocytes % (auto) 28.5 % (10.0-50.0); Mean Corpuscular Hemoglobin 31.7 pg (28.0-32.0); Mean Corpuscular Hgb Conc. 33.5 g/dL (32.0-36.0); Mean Corpuscular Volume 94.7 fL (80.0-100.0); Monocytes # (auto) 0.5 10 ^3/uL (0-1.3); Monocytes % (auto) 11.4 % (0.0-12.0); Neutrophils # (auto) 2.2 10 ^3/uL (1.6-8.6); Neutrophils % (auto) 54.4 % (37.0-80.0); Nucleated Red Blood Cells % 0.1 %; Platelet Count (auto) 148 10^3/uL (140-450); Red Blood Cells 3.94 10^6/uL (4.5-5.90); Red Cell Distribution Width 14.2 % (11.8-14.3); White Blood Cell 4.1 10^3/uL (4.4-10.8)
[2024-06-04 09:52] VITALS: BP 144/76; PULSE 68; RESP 19; TEMP 98.5; O2SAT 98
[2024-06-04] MEDS: NIFEdipine ER 30 MG TAB PO SCH (10:41)
[2024-06-04] MEDS: PANTOPRAZOLE 40 MG TAB PO ONE (10:42)
[2024-06-04] MEDS ORDERED: PANT40T PO (14:57)
[2024-06-04 15:28] VITALS: BP 158/66; PULSE 63; RESP 19; TEMP 98.6; O2SAT 98
[2024-06-04] MEDS ORDERED: PANTOPRAZOLE 40 MG TAB PO SCH (17:00)
[2024-06-04] MEDS: CYANOCOBALAMIN 500 MCG TAB PO ONE (17:08)
[2024-06-04 17:26] VITALS: BP 148/61; PULSE 76; RESP 18; TEMP 98.5; O2SAT 97
[2024-06-04] MEDS ORDERED: KETAMINE 50mg/ML 1ml syringe IM ONE (17:32)
[2024-06-05] MEDS ORDERED: CYANOCOBALAMIN 500 MCG TAB PO SCH (10:00)
== END 2024-06-04 17:33 | disposition home or self-care (01) | DRG 381 ==
LOC: ER 09:25 → EDBD 09:25 → OVERFLOW 15:03 → EAST 20:58
PROVIDERS: ADMIT Internal Medicine; ATTEND Internal Medicine
PROC: 0DB68ZX Excision of Stomach, Via Natural or Artificial Opening Endoscopic, Diagnostic (ICD-10-PCS; 2024-06-03)
PROC: 0DB48ZX Excision of Esophagogastric Junction, Via Natural or Artificial Opening Endoscopic, Diagnostic (ICD-10-PCS; principal; 2024-06-03 16:11)
DX: K22.70 Barrett's esophagus without dysplasia (principal); Q39.6 Congenital diverticulum of esophagus; K44.9 Diaphragmatic hernia without obstruction or gangrene; K29.70 Gastritis, unspecified, without bleeding; J44.9 Chronic obstructive pulmonary disease, unspecified; I10 Essential (primary) hypertension; W44.9XXA Unspecified foreign body entering into or through a natural orifice, initial encounter; K22.89 Other specified disease of esophagus; Z88.0 Allergy status to penicillin; Z88.6 Allergy status to analgesic agent; Z88.1 Allergy status to other antibiotic agents; Z90.49 Acquired absence of other specified parts of digestive tract; Z87.891 Personal history of nicotine dependence
CPT/HCPCS: 36415; 71046; 80048; 85025; 85610; 93005; G0378; J2250; J2470; J2704

== ENCOUNTER 2024-06-26 10:12 | Emergency (ER) | payer OTHER, MEDICAID ==
[~2024-06-26] VITALS: Ht 177.8 cm; Wt 68.0 kg
[~2024-06-26 10:12] MED LIST changes: -CETI-83 OR; +CETI10TA2 PO; -CYAN500S8 SL; +FERR325T20 PO; +PANT40T PO
[2024-06-26 10:41] VITALS: BP 143/89; PULSE 71; RESP 18; TEMP 98.4; O2SAT 98
[2024-06-26] MEDS ORDERED: BACDST PO (10:56)
== END 2024-06-26 11:00 | disposition home or self-care (01) ==
LOC: ER 10:12
DX: M79.641 Pain in right hand (principal); I10 Essential (primary) hypertension; J44.9 Chronic obstructive pulmonary disease, unspecified; Z79.899 Other long term (current) drug therapy; Z90.49 Acquired absence of other specified parts of digestive tract; Z90.89 Acquired absence of other organs; Z98.890 Other specified postprocedural states; Z88.0 Allergy status to penicillin; Z88.1 Allergy status to other antibiotic agents; Z88.6 Allergy status to analgesic agent; W55.03XA Scratched by cat, initial encounter; Y93.89 Activity, other specified; Y92.89 Other specified places as the place of occurrence of the external cause; Y99.8 Other external cause status

== ENCOUNTER 2024-10-14 08:14 | Inpatient (IN) | payer OTHER, MEDICAID ==
[~2024-10-14] VITALS: Ht 177.8 cm; Wt 62.0 kg
[2024-10-14] VITALS (10 sets, daily range): BP systolic 102–118; BP diastolic 36–53; PULSE 70–80; RESP 16–22; TEMP 98–98.2; O2SAT 95–99
[~2024-10-14 08:14] MED LIST changes: +BACDST PO
--- NOTE | 2024-10-14 09:23 | ED.PDOC ---
SOB-HPI HPI Comments 83 year old male brought in by EMS presents to the ED with a chief complaint of shortness of breath onset 1 week. Patient states he has been experiencing shortness of breath with dizziness, dry cough, fever for the past week. Patient also noticed intermittent RT leg pain/swelling. PMHx HTN, COPD, colon cancer. He has been non compliant with medication for the past 3 days. Denies chills, sweats, headache, nausea, vomiting, diarrhea. No other symptoms or modifying factors present at this time. Chief Complaint: Shortness of Breath Time Seen by MD: 09:09 Primary Care Provider: JONAH Joyce notes: Medications, Allergies Information Source: Patient, Emergency Med Personnel Mode of Arrival: EMS Severity: Moderate Timing: Weeks Duration: Since onset Context: At Rest PE Risk Factors: None History of: COPD Prehospital treatment: None Associated Signs and Symptoms: Fever, Cough Radiation: No Radiation If cough with SOB: Non-Productive Past Medical History PAST MEDICAL HISTORY: Cancer, COPD, HTN Surgical History: Appendectomy, Hernia Repair, Tonsillectomy Family History Family History: Reviewed,noncontributory to illness Social History Smoker: Non-Smoker Alcohol: Denies ETOH Use Drugs: Denies Drug Use Lives In: Home Constitutional: reports: fever; denies: chills, diaphoresis, fatigue, malaise, sweats, weakness, others EENTM: denies: blurred vision, double vision, ear bleeding, ear discharge, ear drainage, ear pain, ear ringing, eye pain, eye redness, hearing loss, mouth pain, mouth swelling, nasal discharge, nose bleeding, nose congestion, nose pain, photophobia, tearing, throat pain, throat swelling, voice changes, others Respiratory: reports: cough, shortness of breath; denies: hemoptysis, orthopnea, SOB at rest, SOB with excertion, stridor, wheezing, others Cardiovascular: denies: chest pain, dizzy spells, diaphoresis, Dyspnea on exertion, edema, irregular heart beat, left arm pain, lightheadedness, palpitations, PND, syncope, others Gastrointestinal: denies: abdomen distended, abdominal pain, blood streaked bowels, constipated, diarrhea, dysphagia, difficulty swallowing, hematemesis, melena, nausea, poor appetite, poor fluid intake, rectal bleeding, rectal pain, vomiting, others Genitourinary: denies: burning, dysuria, flank pain, frequency, hematuria, incontinence, penile discharge, penile sore, pain, testicle pain, testicle swelling, urgency, others Neurological: reports: dizziness; denies: fainting, headache, left sided numbness, left sided weakness, numbness, paresthesia, pre-existing deficit, right sided numbness, right sided weakness, seizure, speech problems, tingling, tremors, weakness, others Musculoskeletal: reports: others (RT leg swelling ); denies: back pain, gout, joint pain, joint swelling, muscle pain, muscle stiffness, neck pain Integumetry: denies: bruises, change in color, change in hair/nails, dryness, laceration, lesions, lumps, rash, wounds, others Allergic/Immunocompromised: denies: Difficulty Healing, Frequent Infections, Hives, Itching, others Hematologic/Lymphatic: denies: anemia, blood clots, easy bleeding, easy bruising, swollen glands, others Endocrine: denies: excessive hunger, excessive sweating, excessive thirst, excessive urination, flushing, intolerance to cold, intolerance to heat, unexplained weight gain, unexplained weight loss, others Psychiatric: denies: anxiety, bipolar disorder, depression, hopeless, panic disorder, schizophrenia, sleepless, suicidal, others All Other Systems: Reviewed and Negative Physical Exam General Appearance: Mild Distress, Moderate Distress HEENT: Normal ENT Inspection, PERRL/EOMI Neck: Full Range of Motion, Non-Tender, Normal, Normal Inspection Respiratory: Crackles, Decreased Breath Sounds, Expiration, Inspiration, No Respiratory Distress, Rhonchi Cardiovascular: No Edema, No JVD, No Murmur, No Gallop, Normal Peripheral Pulses, Regular Rate/Rhythm Breast Exam: Deferred Gastrointestinal: No Organomegaly, Non Tender, No Pulsatile Mass, Normal Bowel Sounds, Soft Genitalia: Deferred Pelvic: Deferred Rectal: Deferred Extremities: No calf tenderness, Normal capillary refill, Normal inspection, Normal range of motion, Non-tender, No pedal edema, Swelling, Other (Left leg swollen more than right) Neurologic: Alert, Motor Weakness Cerebellar Function: Normal Reflexes: NOT DONE Skin: Dry, Normal Color, Warm Peripheral Pulses: 1+ carotid (R), 1+ carotid (L) Lymphatic: No Adenopathy EKG EKG : Pulse Rate (adult): 84 [place]: Normal Cardiac Rhythm: NSR Was a procedure done? Was a procedure done?: No Differential Dx Differential Diagnosis: Bronchitis, CHF, COPD, Hypertension, Hyponatremia, Pneumonia, URI X-Ray, Labs, Meds, VS Vital Signs Date Time Temp Pulse Resp B/P (MAP) Pulse Ox O2 Delivery O2 Flow Rate FiO2 10/14/24 10:53 80 22 96 Nasal Cannula* 2 28 10/14/24 10:52 97.8 80 22 156/65 (95) 96 97.8 10/14/24 10:52 156/65 10/14/24 10:19 84 10/14/24 09:47 180/67 10/14/24 08:48 97.8 81 22 178/70 (106) 95 97.8 10/14/24 08:32 97.5 81 20 202/78 (119) 96 10/14/24 08:32 20 Nasal Cannula 2.0 10/14/24 08:17 84 Lab Test 10/14/24 09:44 Range/Units White Blood Count 5.6 4.4-10.8 10^3/uL Red Blood Count 4.07 L 4.5-5.90 10^6/uL Hemoglobin 13.2 L 13.5-17.5 g/dL Hematocrit 39.1 L 41.0-53.0 % Mean Corpuscular Volume 95.9 80.0-100.0 fL Mean Corpuscular Hemoglobin 32.4 H 28.0-32.0 pg Mean Corpuscular Hemoglobin Concent 33.8 32.0-36.0 g/dL Red Cell Distribution Width 13.6 11.8-14.3 % Platelet Count 126 L 140-450 10^3/uL Mean Platelet Volume 9.2 6.9-10.8 fL Neutrophils (%) (Auto) 81.8 H 37.0-80.0 % Lymphocytes (%) (Auto) 7.6 L 10.0-50.0 % Monocytes (%) (Auto) 8.6 0.0-12.0 % Eosinophils (%) (Auto) 1.4 0.0-7.0 % Basophils (%) (Auto) 0.6 0.0-2.0 % Neutrophils # (Auto) 4.6 1.6-8.6 10 ^3/uL Lymphocytes # (Auto) 0.4 0.4-5.4 10 ^3/uL Monocytes # (Auto) 0.5 0-1.3 10 ^3/uL Eosinophils # (Auto) 0.1 0-0.8 10 ^3/uL Basophils # (Auto) 0 0-0.2 10 ^3/uL Nucleated Red Blood Cells 0.1 % D-Dimer, Quantitative 3.29 H 0.0-0.49 mg/L FEU Sodium Level 138 136-145 mmol/L Potassium Level 3.6 3.5-5.1 mmol/L Chloride Level 103 98-107 mmol/L Carbon Dioxide Level 26 20-31 mmol/L Anion Gap 9 5-15 Blood Urea Nitrogen 20 9-23 mg/dL Creatinine 1.42 H 0.700-1.30 mg/dL Glomerular Filtration Rate Calc 50 >90 mL/min BUN/Creatinine Ratio 14.1 10.0-20.0 Serum Glucose 94 74-106 mg/dL Calcium Level 10.5 H 8.7-10.4 mg/dL Magnesium Level 1.6 1.6-2.6 mg/dL Total Bilirubin 0.9 0.2-1.0 mg/dL Aspartate Amino Transferase (AST) 14 13-40 U/L Alanine Aminotransferase (ALT) < 9 7-40 U/L Alkaline Phosphatase 89 46-116 U/L Troponin I High Sensitivity 16 </=54 ng/L B-Type Natriuretic Peptide 313.70 0-100 pg/mL Total Protein 8.5 H 5.7-8.2 g/dL Albumin 5.1 H 3.2-4.8 g/dL Current Medications Medications (Trade) Dose Ordered Sig/Chano Route Start Time Stop Time Status Last Admin Sodium Chloride 1,000 ml @ 150 mls/hr Q6H40M ONCE IV 10/14/24 09:30 10/14/24 16:09 DC 10/14/24 09:39 Clonidine HCl (Catapres Tablet) 0.2 mg ONCE ONCE PO 10/14/24 09:30 10/14/24 09:31 DC 10/14/24 09:[address] [address] Ph: [phone] DIAGNOSTIC IMAGING Diagnostic Imaging Report : [id number] Signed PATIENT: CEDRICK KABA ACCT: [id number] UNIT: [id number] : 1940 LOC: ER ROOM / BED: / AGE / SEX: 83 / M ADM STATUS: REG ER SERVICE 6 ORDERING PHYSICIAN: PRESTON ROJAS MD PROCEDURE(s): CXR2 - CHEST TWO VIEWS ROUTINE REASON: sob ORDER NUMBER(s): [id number], ACCESSION NUMBER(s): [id number] XY CHEST TWO VIEWS ROUTINE, HISTORY: sob COMPARISON: XY CHEST TWO VIEWS ROUTINE on DOS: 06/02/24 XY CHEST TWO VIEWS ROUTINE on DOS: 06/02/24 TECHNICAL DATA: 1 view of the chest was obtained. FINDINGS: Lines and tubes: None Cardiomediastinal silhouette: normal Pulmonary vasculature: normal Lung expansion: normal Lung airspace: normal Lung interstitium: normal Pleura: normal Pneumothorax: no Bones: Unremarkable Other: no IMPRESSION: No acute intrathoracic abnormality. ATED BY: STEFAN JARAMILLO MD DICTATED DATE/TIME: 10/14/24937 SIGNED BY: STEFAN JARAMILLO MD SIGNED DATE/TIME: 10/14/24937 CC: X-Ray, Labs, Meds, VS Comment Course in the emergency department eventful Patient came in with a blood pressure of 202/76 blood sugar of 107 complaining of shortness of breath and unable to bring back thick flank The chest x-ray is normal EKG shows normal sinus rhythm at 84 CBC 5600 with 82% neutrophils and normal H&H GFR of 50 Magnesium 1.6 Troponin 16 Patient will need to be hydrated and medicated We will be admitted for further care Time of 1ST Reevaluation: 09:39 Reevaluation 1ST: Unchanged Patient Education/Counseling: Diagnosis, Treatment, Prognosis Family Education/Counseling: No Family Present Additional Information The following tests were ordered, and results were reviewed by me: EKG, CBC, CMP, MAGNESIUM, XR CHEST 2 VIEWS, TROP Additional Information was gathered from interviewing the following independent historians: EMS I reviewed and agreed with the following test results read by other providers: XR CHEST 2 VIEWS, I discussed treatment and results with medical personnel and: patient Departure 1 Departure Time of Disposition: 11:30 Impression: Primary Impression: COPD (chronic obstructive pulmonary disease) Qualified Codes: J43.2 - Centrilobular emphysema Additional Impressions: Severe dehydration CKD (chronic kidney disease) Uncontrolled hypertension Left leg swelling Disposition: ADMITTED INPATIENT Admit to: Tele Condition: Fair Critical Care Note Critical Care Time?: No Stability Stability form required: Yes Unstable for transfer: Telemetry monitoring (Telemetry monitoring required), Requires medication (Requires Med for stabilization) Heart Score Heart Score: Heart Score Response (Comments) Value History Slightly Suspicious 0 EKG Normal 0 Age >65 2 Risk Factors 1 or 2 risk factors 1 Troponin Normal limit 0 Total 3 I personally scribed for PRESTON ROJAS MD ([email or web address]) on 10/14/24 at 09:23. Electronically submitted by Keya Lane ([email or web address]). I personally scribed for PRESTON ROJAS MD ([email or web address]) on 10/14/24 at 11:46. Electronically submitted by Keya Lane [email or web address]). PRESTON ROJAS MD Oct 14, 2024 09:23
[2024-10-14] MEDS: SODIUM CHLORIDE 0.9% 1,000 ML IV ONE (09:39)
--- NOTE | 2024-10-14 09:40 | DVH ---
XY CHEST TWO VIEWS ROUTINE, HISTORY: sob COMPARISON: XY CHEST TWO VIEWS ROUTINE on DOS: 06/02/24 XY CHEST TWO VIEWS ROUTINE on DOS: 06/02/24 TECHNICAL DATA: 1 view of the chest was obtained. FINDINGS: Lines and tubes: None Cardiomediastinal silhouette: normal Pulmonary vasculature: normal Lung expansion: normal Lung airspace: normal Lung interstitium: normal Pleura: normal Pneumothorax: no Bones: Unremarkable Other: no IMPRESSION: No acute intrathoracic abnormality.
[2024-10-14] MEDS: cloNIDine HCL 0.1 MG TAB PO ONE (09:47)
[2024-10-14 10:05] LABS: Basophils # (auto) 0 10 ^3/uL (0-0.2); Basophils % (auto) 0.6 % (0.0-2.0); Eosinophils # (auto) 0.1 10 ^3/uL (0-0.8); Eosinophils % (auto) 1.4 % (0.0-7.0); Hematocrit 39.1 % (41.0-53.0); Hemoglobin 13.2 g/dL (13.5-17.5); Lymphocytes # (auto) 0.4 10 ^3/uL (0.4-5.4); Lymphocytes % (auto) 7.6 % (10.0-50.0); Mean Corpuscular Hemoglobin 32.4 pg (28.0-32.0); Mean Corpuscular Hgb Conc. 33.8 g/dL (32.0-36.0); Mean Corpuscular Volume 95.9 fL (80.0-100.0); Monocytes # (auto) 0.5 10 ^3/uL (0-1.3); Monocytes % (auto) 8.6 % (0.0-12.0); Neutrophils # (auto) 4.6 10 ^3/uL (1.6-8.6); Neutrophils % (auto) 81.8 % (37.0-80.0); Nucleated Red Blood Cells % 0.1 %; Platelet Count (auto) 126 10^3/uL (140-450); Red Blood Cells 4.07 10^6/uL (4.5-5.90); Red Cell Distribution Width 13.6 % (11.8-14.3); White Blood Cell 5.6 10^3/uL (4.4-10.8)
[2024-10-14 10:13] LABS: Alkaline Phosphatase 89 U/L (46-116); Anion Gap 9 (5-15); Aspartate Aminotransferase 14 U/L (13-40); BUN/Creatinine Ratio 14.1 (10.0-20.0); Bilirubin, Total 0.9 mg/dL (0.2-1.0); Blood Urea Nitrogen 20 mg/dL (9-23); Carbon Dioxide 26 mmol/L (20-31); Chloride 103 mmol/L (98-107); Glucose 94 mg/dL (74-106); Magnesium 1.6 mg/dL (1.6-2.6); Potassium 3.6 mmol/L (3.5-5.1); Sodium 138 mmol/L (136-145)
[2024-10-14 10:17] LABS: Alanine Aminotransferase < 9 U/L (7-40); Albumin 5.1 g/dL (3.2-4.8); Calcium 10.5 mg/dL (8.7-10.4); Total Protein 8.5 g/dL (5.7-8.2)
[2024-10-14] MEDS ORDERED: IPRATROPIUM BROM 0.5 MG/2.5ML INH SOL NEB PRN (12:00)
[2024-10-14] MEDS ORDERED: ONDANSETRON HCL 4 MG/2 ML VIAL IV PRN (12:00)
[2024-10-14] MEDS ORDERED: ACETAMINOPHEN 325 MG TAB PO PRN (12:00)
[2024-10-14] MEDS ORDERED: ALBUTEROL SULF 2.5 MG/0.5ML(0.5%) NEB SOLN NEB PRN (12:00)
[2024-10-14] MEDS ORDERED: levoFLOXacin 500MG 100 ML IV ONE (12:15)
--- NOTE | 2024-10-14 12:22 | DVHHP2 ---
History of Present Illness Reason for Visit: SOB History of Present Illness Christoph Alex is a an 83-year-old male with past medical history of hypertension, COPD, colon cancer, mitral valve prolapse, Melendez's esophagus, gastritis, appendectomy, hernia repair, tonsillectomy, EGD, and abdominal tumor surgery removal in 2019 who presents to the ED with shortness of breath, dizziness, nonproductive cough, fever, and right lower leg swelling x1 week. Patient states that he lives at home with his who is oxygen dependent however he is not oxygen dependent but states that he needs oxygen. Patient denies any recent sick contacts, recent travels, chills, chest pain, recent injury, nausea, vomiting, abdominal pain, weakness, or dysuria. Patient also reports that he has not taken his home medications, states that he has been busy doing other things. Cardiovascular: HTN Pulmonary: COPD GI: Gastritis Past Medical History Colon cancer Mitral valve prolapse Melendez's esophagus Past Surgical History: Appendectomy, Hernia Repair, Other (EGD, abdominal tumor removal in 2019), Tonsillectomy Smoke: Quit ALCOHOL: none Drugs: None Lives: with Family Domestic Violence: Neg Review of Systems Constitutional: Yes: Fever, Other (Dizziness); No: Chills, Sweats, Weakness, Malaise Eyes: No: Pain, Vision change, Conjunctivae inflammation, Eyelid inflammation, Other, Redness ENT: No: Ear pain, Ear discharge, Nose pain, Nose discharge, Nose congestion, Mouth pain, Mouth swelling, Throat pain, Throat swelling, Other Respiratory: Cough, Shortness of breath; No: Dry, SOB with excertion, Wheezing, Hemoptysis, Pleuritic Pain, Sputum, Wheezing, Other Cardiovascular: No: Chest Pain, Palpitations, Orthopnea, Paroxysmal Noc. Dyspnea, Edema, Lt Headedness, Other Gastrointestinal: No: Nausea, Vomiting, Abdominal Pain, Diarrhea, Constipation, Melena, Hematochezia, Other Genitourinary: No Dysuria, No Frequency, No Incontinence, No Hematuria, No Retention, No Other Musculoskeletal: other (Right leg swelling); No: neck pain, shoulder pain, arm pain, back pain, hand pain, leg pain, foot pain Skin: No: Rash, Lesions, Jaundice, Bruising, Other Neurological: No: Weakness, Numbness, Incoordination, Change in speech, Confusion, Seizures, Other Allergies: Coded Allergies: Penicillins (Verified Allergy, Intermediate, 11/11/23) 11/11/23: 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 PT STATED RECIEVING PCN IN 1950, ENDORSED HIVES AND ITCHING. ALSO STATED RECIEVING PCN 15 YEARS AGO AT [facility] EXPERIENCED SOB AND SWELLING OF THROAT. DOES NOT REMEMBER THE NAMES OF ANY ABX AND HAS NOT TAKEN ANY PCN ABX SINCE. Aspirin (Verified Allergy, Unknown, 07/27/23) Erythromycin (Verified Allergy, Unknown, 02/14/23) Exam Vital Signs Vital Signs Date Time Temp Pulse Resp B/P (MAP) Pulse Ox O2 Delivery O2 Flow Rate FiO2 10/14/24 10:53 80 22 96 Nasal Cannula* 2 28 10/14/24 10:52 97.8 156/65 (95) 97.8 General Appearance: Alert, Oriented X3, Cooperative, No acute distress HEENT: Atraumatic, PERRLA, EOMI, Mucous membr. moist/pink Respiratory: Normal air movement Cardiovascular: Regular rate, Normal S1, Normal S2, No murmurs Abdominal: Normal bowel sounds, Soft, No tenderness, No hepatospenomegaly, No masses Extremities: No cyanosis Skin: No significant lesion Neuro: Normal speech, Normal tone, Sensation intact Psych/Mental Status: Mental status NL, Mood NL Labs/Xrays Labs Test 10/14/24 09:44 Range/Units White Blood Count 5.6 4.4-10.8 10^3/uL Red Blood Count 4.07 L 4.5-5.90 10^6/uL Hemoglobin 13.2 L 13.5-17.5 g/dL Hematocrit 39.1 L 41.0-53.0 % Mean Corpuscular Volume 95.9 80.0-100.0 fL Mean Corpuscular Hemoglobin 32.4 H 28.0-32.0 pg Mean Corpuscular Hemoglobin Concent 33.8 32.0-36.0 g/dL Red Cell Distribution Width 13.6 11.8-14.3 % Platelet Count 126 L 140-450 10^3/uL Mean Platelet Volume 9.2 6.9-10.8 fL Neutrophils (%) (Auto) 81.8 H 37.0-80.0 % Lymphocytes (%) (Auto) 7.6 L 10.0-50.0 % Monocytes (%) (Auto) 8.6 0.0-12.0 % Eosinophils (%) (Auto) 1.4 0.0-7.0 % Basophils (%) (Auto) 0.6 0.0-2.0 % Neutrophils # (Auto) 4.6 1.6-8.6 10 ^3/uL Lymphocytes # (Auto) 0.4 0.4-5.4 10 ^3/uL Monocytes # (Auto) 0.5 0-1.3 10 ^3/uL Eosinophils # (Auto) 0.1 0-0.8 10 ^3/uL Basophils # (Auto) 0 0-0.2 10 ^3/uL Nucleated Red Blood Cells 0.1 % Sodium Level 138 136-145 mmol/L Potassium Level 3.6 3.5-5.1 mmol/L Chloride Level 103 98-107 mmol/L Carbon Dioxide Level 26 20-31 mmol/L Anion Gap 9 5-15 Blood Urea Nitrogen 20 9-23 mg/dL Creatinine 1.42 H 0.700-1.30 mg/dL Glomerular Filtration Rate Calc 50 >90 mL/min BUN/Creatinine Ratio 14.1 10.0-20.0 Serum Glucose 94 74-106 mg/dL Calcium Level 10.5 H 8.7-10.4 mg/dL Magnesium Level 1.6 1.6-2.6 mg/dL Total Bilirubin 0.9 0.2-1.0 mg/dL Aspartate Amino Transferase (AST) 14 13-40 U/L Alanine Aminotransferase (ALT) < 9 7-40 U/L Alkaline Phosphatase 89 46-116 U/L Troponin I High Sensitivity 16 </=54 ng/L Total Protein 8.5 H 5.7-8.2 g/dL Albumin 5.1 H 3.2-4.8 g/dL LEFT LOWER EXTREMITY VENOUS DOPPLER CLINICAL HISTORY: rle swelling/pain TECHNIQUE: Lower extremity venous Doppler study was performed. COMPARISON: US LT LOWER DVT on DOS: 09/17/23 FINDINGS: The left common femoral, superficial femoral, popliteal, posterior tibial veins appear patent with normal augmentation, phasicity, compressibility and flow. IMPRESSION: 1. No sonographic evidence of DVT in the left leg. XY CHEST TWO VIEWS ROUTINE, HISTORY: sob COMPARISON: XY CHEST TWO VIEWS ROUTINE on DOS: 06/02/24 XY CHEST TWO VIEWS ROUTINE on DOS: 06/02/24 TECHNICAL DATA: 1 view of the chest was obtained. FINDINGS: Lines and tubes: None Cardiomediastinal silhouette: normal Pulmonary vasculature: normal Lung expansion: normal Lung airspace: normal Lung interstitium: normal Pleura: normal Pneumothorax: no Bones: Unremarkable Other: no IMPRESSION: No acute intrathoracic abnormality. Assessment/Plan Assessment/Plan Assessment/Plan: Acute on chronic COPD exacerbation Thrombocytopenia JUSTINE Rule out PE Chest x-ray Clonidine given in ER NS given ER Troponin Mag level EKG Respiratory treatments D-dimer IV antibiotics-Levaquin, patient allergic to penicillins IV fluids Labs A.m. labs Flu test COVID test UA BNP Ultrasound right lower extremity DVT rule out IV steroid CT angio chest Chronic hypertension Continue home medications History of Mitral valve prolapse Outpatient follow up with PCP History of Melendez's esophagus History of gastritis Follow up outpatient with PCP FEN/PPX diet Ivf DVT ppx on Lovenox until PE is ruled out PUD ppx -Protonix Discussed plan of care with patient and nurse Home medications reconciled Admit to telemetry Plan discussed with: Patient My Orders Orders - JORGE WEBB [employer] Procedure Category Date Status Time Albuterol Medneb PHA 10/14/24 Logged (Ventolin Medneb) 12:00 Albuterol Medneb PHA 10/14/24 Logged (Ventolin Medneb) 12:00 Ipratropium Medneb PHA 10/14/24 Logged (Atrovent Medneb) 12:00 Ipratropium Medneb PHA 10/14/24 Logged (Atrovent Medneb) 12:00 Admit ADMIT 10/14/24 Transmitted 11:51 Allergies LACEY 10/14/24 In Process 11:51 Code Status CODE 10/14/24 Transmitted 11:51 Ondansetron Hcl PHA 10/14/24 Logged (Zofran) 12:00 Complete Blood Count LAB 10/15/24 Verified 04:00 Comprehensive LAB 10/15/24 Verified Metabolic Panel 04:00 Cardiac DIET 10/14/24 Transmitted Diet-2gna,Lofat,Lochol Lunch Acetaminophen Tablet PHA 10/14/24 Logged (Tylenol Tablet) 12:00 D-Dimer LAB 10/14/24 Logged 11:51 Clonidine Hcl Tablet PHA 10/14/24 Logged (Catapres Tablet) 12:00 Pantoprazole Tablet PHA 10/14/24 Logged (Protonix Tablet) 22:00 (Nf) Cetirizine Hcl PHA 10/15/24 Logged (Kls Aller-Sully) 10:00 (Nf) Ferrous Sulfate PHA 10/14/24 Logged (Ferosul) 18:00 (Nf) Olmesartan PHA 10/14/24 Logged Medoxomil 22:00 Levofloxacin 500mg PHA 10/15/24 Logged (Levaquin 500mg/ 100m 10:00 Levofloxacin 500mg PHA 10/14/24 Logged (Levaquin 500mg/ 100m 12:15 Sodium Chloride 0.9% PHA 10/14/24 Logged 12:30 Date of Service: Oct 14, 2024 Billing Provider: JORGE WEBB Common Visit Codes: 34231-[id number] INP/OBS CARE (HIGH) JORGE WEBB Oct 14, 2024 12:22
[2024-10-14] MEDS: SODIUM CHLORIDE 0.9% 1,000 ML IV SCH (12:30)
[2024-10-14] MEDS ORDERED: methylPREDNISolone SOD SUCC 40 MG/ML VL IM ONE (12:45)
[2024-10-14] MEDS: ALBUTEROL SULF 2.5 MG/0.5ML(0.5%) NEB SOLN NEB SCH (13:48)
[2024-10-14] MEDS: IPRATROPIUM BROM 0.5 MG/2.5ML INH SOL NEB SCH (13:49)
--- NOTE | 2024-10-14 15:02 | DVH ---
LEFT LOWER EXTREMITY VENOUS DOPPLER CLINICAL HISTORY: rle swelling/pain TECHNIQUE: Lower extremity venous Doppler study was performed. COMPARISON: US LT LOWER DVT on DOS: 09/17/23 FINDINGS: The left common femoral, superficial femoral, popliteal, posterior tibial veins appear patent with normal augmentation, phasicity, compressibility and flow. IMPRESSION: 1. No sonographic evidence of DVT in the left leg. HS:Y
[2024-10-14] MEDS: methylPREDNISolone SOD SUCC 40 MG/ML VL IV ONE (15:10)
[2024-10-14] MEDS: levoFLOXacin 500 MG TAB PO ONE (15:10)
[2024-10-14 15:45] LABS: Rapid Influenza A Negative (Negative); Rapid Influenza B Negative (Negative)
[2024-10-14 15:46] LABS: COVID19 ANTIGEN SOFIA FIA NEGATIVE (NEGATIVE)
[2024-10-14 16:16] LABS: Urine Bacteria None Seen /hpf (None Seen)
[2024-10-14 16:29] LABS: Urine Blood 2+ /uL (Negative); Urine Clarity Clear (Clear); Urine Color Light-Yellow (Yellow); Urine Hyaline Cast FEW /lpf (0 - 2); Urine Mucus FEW (None Seen); Urine Protein, UAD Negative (Negative); Urine Specific Gravity 1.013 (1.001-1.035); Urine Squamous Epithelial Cell FEW /hpf (<5); Urine Urobilinogen Normal (Negative); Urine WBC 20 /hpf (0 - 3); Urine pH 6.5 (5.0-9.0)
[2024-10-14] MEDS: FERROUS SULFATE 325mg EC TAB PO SCH (18:00)
[2024-10-14] MEDS: ENOXAPARIN SOD 30 MG/0.3 ML SYRINGE SC SCH (18:00)
[2024-10-14] MEDS: IOHEXOL 350 MG/ML 100ML IJ ONE (18:13)
--- NOTE | 2024-10-14 19:17 | DVH ---
INDICATION: r/o pe COMPARISON: CT CT ANGIO CHEST CONTRAST on DOS: 09/17/23 TECHNIQUE: Multidetector CTA of the chest was performed of the chest with 100 cc of intravenous contr ast. PULMONARY ANGIOGRAPHY PROTOCOL was utilized using a bolus-tracking technique centered on the duran n pulmonary artery. Axial, coronal and sagittal multiplanar and MIP reformats were performed. Radiation Dose : 1. Chest: CTDI volume is 5.92 mGy. Dose-length product is 339.57 mGy*cm The dose indicators for CT are the volume Computed Tomography (CT) Dose Index (CTDIvol) and the Dose Length Product (DLP), and are measured in units of mGy and mGy-cm, respectively. These indicators are not patient dose, but values generated from the CT scanner acquisition factors. The report includes radiation exposure data for exposures received during this examination. Findings: The thyroid gland is unremarkable. No pulmonary embolism. No aortic aneurysm or dissection. Mild atherosclerotic calcification of the a anson. No significant lymphadenopathy. Biapical, bilateral lower lobe and bilateral dependent atelectasis. 4 mm left posterior upper lobe so lid nodule. Left lateral upper lobe pleural-based calcification. No pneumothorax or pleural effusion. Mesenteric fat containing right posterior diaphragmatic hernia with large right renal upper pole cys t in close proximity to the neck of the hernia. Left-sided 5th rib chronic fractures. Diffuse demineralization. Multilevel endplate irregularity and Schmorl nodes. Mild soft tissue edema. 1.3 cm hepatic cyst. 4.1 cm right renal upper pole cyst. 1.5 cm exophytic right posterior renal hypod ense lesion which does not measure simple fluid. Small hiatal hernia. Mild patulous appearance of the esophagus with fluid-filled distal esophagus. Mild wall thickening of the distal esophagus. IMPRESSION: No pulmonary embolism. No aortic aneurysm or dissection. Biapical, bibasilar and bilateral dependent atelectasis. 4 mm left upper lobe solid nodule. Recommend follow-up per Fleischner criteria. Small hiatal with fluid-filled mildly distended distal esophagus. Mild wall thickening of the distal esophagus. Correlate for esophagitis. Right renal cysts with additional 1.5 cm exophytic right renal hypodense lesion which does not measur e simple fluid ; unchanged from 03/06/2023. Renal ultrasound should be considered for further evaluat ion. Small hepatic cyst.
[2024-10-14] MEDS ORDERED: PANTOPRAZOLE 40 MG TAB PO SCH (22:00)
[2024-10-14] MEDS: methylPREDNISolone SOD SUCC 40 MG/ML VL IV SCH (22:01)
[2024-10-15] VITALS (10 sets, daily range): BP systolic 117–172; BP diastolic 53–62; PULSE 72–95; RESP 18–20; TEMP 97.6–98.6; O2SAT 96–100
[2024-10-15] MEDS: cloNIDine HCL 0.1 MG TAB PO PRN (05:16)
[2024-10-15 06:45] LABS: Basophils # (auto) 0 10 ^3/uL (0-0.2); Basophils % (auto) 0.1 % (0.0-2.0); Eosinophils # (auto) 0 10 ^3/uL (0-0.8); Hematocrit 35.1 % (41.0-53.0); Hemoglobin 11.8 g/dL (13.5-17.5); Lymphocytes # (auto) 0.3 10 ^3/uL (0.4-5.4); Lymphocytes % (auto) 6.1 % (10.0-50.0); Mean Corpuscular Hemoglobin 32.4 pg (28.0-32.0); Mean Corpuscular Hgb Conc. 33.4 g/dL (32.0-36.0); Mean Corpuscular Volume 96.8 fL (80.0-100.0); Monocytes # (auto) 0.1 10 ^3/uL (0-1.3); Monocytes % (auto) 1.7 % (0.0-12.0); Neutrophils # (auto) 4.1 10 ^3/uL (1.6-8.6); Neutrophils % (auto) 92.1 % (37.0-80.0); Platelet Count (auto) 142 10^3/uL (140-450); Red Blood Cells 3.63 10^6/uL (4.5-5.90); Red Cell Distribution Width 13.5 % (11.8-14.3); White Blood Cell 4.4 10^3/uL (4.4-10.8)
[2024-10-15 07:02] LABS: Albumin 4.4 g/dL (3.2-4.8); Alkaline Phosphatase 74 U/L (46-116); Anion Gap 10 (5-15); BUN/Creatinine Ratio 16.1 (10.0-20.0); Bilirubin, Total 0.5 mg/dL (0.2-1.0); Blood Urea Nitrogen 22 mg/dL (9-23); Calcium 10.1 mg/dL (8.7-10.4); Carbon Dioxide 24 mmol/L (20-31); Chloride 102 mmol/L (98-107); Potassium 4.3 mmol/L (3.5-5.1); Total Protein 7.5 g/dL (5.7-8.2)
[2024-10-15 07:06] LABS: Sodium 136 mmol/L (136-145)
[2024-10-15 07:07] LABS: Alanine Aminotransferase < 9 U/L (7-40); Aspartate Aminotransferase 12 U/L (13-40); Glucose 152 mg/dL (74-106)
[2024-10-15] MEDS: PANTOPRAZOLE 40 MG/10 ML VIAL INJ IV SCH (08:51)
[2024-10-15] MEDS: LORATADINE 10 MG TAB PO SCH (08:51)
[2024-10-15] MEDS: LOSARTAN POTASSIUM 25 MG TAB PO SCH (08:52)
[2024-10-15] MEDS: levoFLOXacin 250 MG TAB PO SCH (08:52)
[2024-10-15] MEDS ORDERED: levoFLOXacin 500MG 100 ML IV SCH (10:00)
[2024-10-15] MEDS ORDERED: POTA-228 PO (11:11)
[2024-10-15] MEDS ORDERED: FURO1TAB33 PO (11:11)
[2024-10-15] MEDS ORDERED: ALBUAER3 IN (11:11)
[2024-10-15] MEDS ORDERED: PRED20TA2 PO (11:11)
[2024-10-15] MEDS ORDERED: AZIT-185 PO (11:11)
--- NOTE | 2024-10-15 11:15 | DVHDS2 ---
Discharge Summary Date of Admission Oct 14, 2024 at 11:51 Date of Discharge: Oct 15, 2024 Admitting Diagnosis COPD Exacerbation Labs/Diagnostic Data: Laboratory Results Test 10/15/24 04:55 10/14/24 16:00 10/14/24 15:00 10/14/24 09:44 White Blood Count 4.4 10^3/uL (4.4-10.8) Red Blood Count 3.63 10^6/uL (4.5-5.90) Hemoglobin 11.8 g/dL (13.5-17.5) Hematocrit 35.1 % (41.0-53.0) Mean Corpuscular Volume 96.8 fL (80.0-100.0) Mean Corpuscular Hemoglobin 32.4 pg (28.0-32.0) Mean Corpuscular Hemoglobin Concent 33.4 g/dL (32.0-36.0) Red Cell Distribution Width 13.5 % (11.8-14.3) Platelet Count 142 10^3/uL (140-450) Mean Platelet Volume 9.7 fL (6.9-10.8) Neutrophils (%) (Auto) 92.1 % (37.0-80.0) Lymphocytes (%) (Auto) 6.1 % (10.0-50.0) Monocytes (%) (Auto) 1.7 % (0.0-12.0) Eosinophils (%) (Auto) 0.0 % (0.0-7.0) Basophils (%) (Auto) 0.1 % (0.0-2.0) Neutrophils # (Auto) 4.1 10 ^3/uL (1.6-8.6) Lymphocytes # (Auto) 0.3 10 ^3/uL (0.4-5.4) Monocytes # (Auto) 0.1 10 ^3/uL (0-1.3) Eosinophils # (Auto) 0 10 ^3/uL (0-0.8) Basophils # (Auto) 0 10 ^3/uL (0-0.2) Nucleated Red Blood Cells 0.0 % Sodium Level 136 mmol/L (136-145) Potassium Level 4.3 mmol/L (3.5-5.1) Chloride Level 102 mmol/L (98-107) Carbon Dioxide Level 24 mmol/L (20-31) Anion Gap 10 (5-15) Blood Urea Nitrogen 22 mg/dL (9-23) Creatinine 1.37 mg/dL (0.700-1.30) Glomerular Filtration Rate Calc 52 mL/min (>90) BUN/Creatinine Ratio 16.1 (10.0-20.0) Serum Glucose 152 mg/dL (74-106) Calcium Level 10.1 mg/dL (8.7-10.4) Total Bilirubin 0.5 mg/dL (0.2-1.0) Aspartate Amino Transferase (AST) 12 U/L (13-40) Alanine Aminotransferase (ALT) < 9 U/L (7-40) Alkaline Phosphatase 74 U/L (46-116) Total Protein 7.5 g/dL (5.7-8.2) Albumin 4.4 g/dL (3.2-4.8) Urine Color Light-yellow (Yellow) Urine Clarity Clear (Clear) Urine pH 6.5 (5.0-9.0) Urine Specific [place] 1.013 (1.001-1.035) Urine Protein Negative (Negative) Urine Ketones Trace (Negative) Urine Blood 2+ /uL (Negative) Urine Nitrite 2+ (Negative) Urine Bilirubin Negative (Negative) Urine Urobilinogen Normal mg/dL (Negative) Urine Leukocyte Esterase 2+ /uL (Negative) Urine RBC 7 /hpf (0 - 3) Urine WBC 20 /hpf (0 - 3) Urine Squamous Epithelial Cells Few /hpf (<5) Urine Bacteria None seen /hpf (None Seen) Urine Hyaline Casts Few /lpf (0 - 2) Urine Mucus Few (None Seen) Urine Glucose Normal mg/dL (Normal) Influenza Type A Antigen Negative (Negative) Influenza Type B Antigen Negative (Negative) SARS-CoV-2 Antigen (Rapid) Negative (NEGATIVE) D-Dimer, Quantitative 3.29 mg/L FEU (0.0-0.49) Magnesium Level 1.6 mg/dL (1.6-2.6) Troponin I High Sensitivity 16 ng/L (</=54) B-Type Natriuretic Peptide 313.70 pg/mL (0-100) Other Laboratory Tests 10/15/24 04:55 Brief Hx & Hospital Course: Christoph Alex is a an 83-year-old male with past medical history of hypertension, COPD, colon cancer, mitral valve prolapse, Melendez's esophagus, gastritis, appendectomy, hernia repair, tonsillectomy, EGD, and abdominal tumor surgery removal in 2019 who presents to the ED with shortness of breath, dizziness, nonproductive cough, fever, and right lower leg swelling x1 week. Patient is on Room Air, no respiratory distress. Will be discharged home with Zithromax, Lasix, and Potassium. Patient needs to see his PCP for further management. Patient needs repeat CT Chest in 6 months for lung nodule monitoring. Operations or Procedures INDICATION: r/o pe COMPARISON: CT CT ANGIO CHEST CONTRAST on DOS: 09/17/23 TECHNIQUE: Multidetector CTA of the chest was performed of the chest with 100 cc of intravenous contrast. PULMONARY ANGIOGRAPHY PROTOCOL was utilized using a bolus-tracking technique centered on the main pulmonary artery. Axial, coronal and sagittal multiplanar and MIP reformats were performed. Radiation Dose : 1. Chest: CTDI volume is 5.92 mGy. Dose-length product is 339.57 mGy*cm The dose indicators for CT are the volume Computed Tomography (CT) Dose Index (CTDIvol) and the Dose Length Product (DLP), and are measured in units of mGy and mGy-cm, respectively. These indicators are not patient dose, but values generated from the CT scanner acquisition factors. The report includes radiation exposure data for exposures received during this examination. Findings: The thyroid gland is unremarkable. No pulmonary embolism. No aortic aneurysm or dissection. Mild atherosclerotic calcification of the aorta. No significant lymphadenopathy. Biapical, bilateral lower lobe and bilateral dependent atelectasis. 4 mm left posterior upper lobe solid nodule. Left lateral upper lobe pleural-based calcification. No pneumothorax or pleural effusion. Mesenteric fat containing right posterior diaphragmatic hernia with large right renal upper pole cyst in close proximity to the neck of the hernia. Left-sided 5th rib chronic fractures. Diffuse demineralization. Multilevel endplate irregularity and Schmorl nodes. Mild soft tissue edema. 1.3 cm hepatic cyst. 4.1 cm right renal upper pole cyst. 1.5 cm exophytic right posterior renal hypodense lesion which does not measure simple fluid. Small hiatal hernia. Mild patulous appearance of the esophagus with fluid-filled distal esophagus. Mild wall thickening of the distal esophagus. IMPRESSION: No pulmonary embolism. No aortic aneurysm or dissection. Biapical, bibasilar and bilateral dependent atelectasis. 4 mm left upper lobe solid nodule. Recommend follow-up per Fleischner criteria. Small hiatal with fluid-filled mildly distended distal esophagus. Mild wall thickening of the distal esophagus. Correlate for esophagitis. Right renal cysts with additional 1.5 cm exophytic right renal hypodense lesion which does not measure simple fluid ; unchanged from 03/06/2023. Renal ultrasound should be considered for further evaluation. Small hepatic cyst. Condition at Discharge: Poor Final Diagnosis/Problems List 3 cm hepatic cyst. 4.1 cm right renal upper pole cyst. 1.5 cm exophytic right posterior renal hypodense lesion which does not measure simple fluid. Left Lung Nodule- Repeat CT Chest in 6 months Discharge Disposition: Home Discharge Instruct/Medications Diet: Cardiac 2g Na,low cholest Activity: Light activity Follow Up/Referral: PCP in 1 week Medications: see [facility] Discharge Statement: "Patient was advised to return to the ER or call 911 if any headaches, dizziness, shortness of breath, chest pain, abdominal pain, bleeding, fevers, or worsening of medical condition. Patient was counseled about treatment plan, medications, possible side effects, patientverbalized understanding. All questions were answered to the best of my ability. This discharge took greater then 30 minutes in planning, reviewing documentation, counseling the patient, and discussing with other team members." ASSESSMENT ASSESSMENT Assessment Date of Service: Oct 15, 2024 Billing Provider: DAVID PAGE MD Common Visit Codes: 13147-KIC/OBS DISCH DAY >30min DAVID PAGE MD Oct 15, 2024 11:15
[2024-10-15] MEDS: INFLUENZA TRIVALENT 2024-2025 0.5 ML INJ IM ONE (13:29)
[2024-10-15] MEDS: FUROSEMIDE 40 MG/4 ML VIAL IV ONE (13:29)
--- NOTE | 2024-10-17 07:24 | ECG ---
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
== END 2024-10-15 14:10 | disposition home or self-care (01) | DRG 291 ==
LOC: ER 08:14 → EDBD 08:14 → OVERFLOW 11:51 → TELE 17:35 → TELE-EAST 23:00
DX: I13.0 Hypertensive heart and chronic kidney disease with heart failure and stage 1 through stage 4 chronic kidney disease, or unspecified chronic kidney disease (principal); I50.33 Acute on chronic diastolic (congestive) heart failure; N17.9 Acute kidney failure, unspecified; E86.0 Dehydration; Z20.822 Contact with and (suspected) exposure to COVID-19; N18.9 Chronic kidney disease, unspecified; I34.1 Nonrheumatic mitral (valve) prolapse; D69.6 Thrombocytopenia, unspecified; K76.89 Other specified diseases of liver; N28.1 Cyst of kidney, acquired; Z85.038 Personal history of other malignant neoplasm of large intestine; Z88.1 Allergy status to other antibiotic agents; Z88.6 Allergy status to analgesic agent; Z88.0 Allergy status to penicillin
CPT/HCPCS: 36415; 71046; 71275; 80053; 81001; 83735; 83880; 84484; 85025; 85379; 87426; 87804; 90656; 93005; 93971; 94640; G0378; J2470

== ENCOUNTER 2024-11-16 12:50 | Inpatient (IN) | payer OTHER, MEDICAID ==
[~2024-11-16] VITALS: Ht 177.8 cm; Wt 63.5 kg
[~2024-11-16 12:50] MED LIST changes: +ALBUAER3 IN; +AZIT-185 PO; -BACDST PO; +FURO1TAB33 PO; +POTA-228 PO; +PRED20TA2 PO
--- NOTE | 2024-11-16 13:24 | ED.PDOC ---
GI ASSESSMENT HPI Comments 83y M who presents to the ED via EMS for chief complaint of abdominal pain. Pt states he has been having epigastric abdominal pain since last night PM. Pt states the pain is constant, non-radiating, pressure like in nature, with no associated exacerbating or relieving factors. Pt has been having associated diarrhea and states he has been having episodes of diarrhea with noted black stools since 8 AM this morning. Pt otherwise denies any other associated symptoms. Pt called EMS, and states he told EMS was 8/10 but after EMS gave pt 1 gram Tylenol, pt rates his pain 2/10. Pt otherwise denies use of antibiotics currently. Pt denies any other symptoms at this time. Chief Complaint: Abdominal Pain Time Seen by MD: 13:11 Primary Care Provider: JONAH Reviewed Notes: Nurses Notes, Teacher Lip Reading Notes, Medications, Allergies (Allergies listed above) Allergies: Coded Allergies: Penicillins (Verified Allergy, Intermediate, 11/11/23) 11/11/23: PHARM CHARGE AUTHORIZER, 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 PT STATED RECIEVING PCN IN 1950, ENDORSED HIVES AND ITCHING. ALSO STATED RECIEVING PCN 15 YEARS AGO AT [facility] EXPERIENCED SOB AND SWELLING OF THROAT. DOES NOT REMEMBER THE NAMES OF ANY ABX AND HAS NOT TAKEN ANY PCN ABX SINCE. Aspirin (Verified Allergy, Unknown, 07/27/23) Erythromycin (Verified Allergy, Unknown, 02/14/23) Home Meds Active Scripts Albuterol Sulfate (VENTOLIN MDI) 90 Mcg Ih, 90 MCG IN Q8HP PRN for 30 Days, #120 INH Prov:DAVID PAGE MD 10/15/24 Azithromycin (ZITHROMAX TABLET) 250 Mg Tb, 500 MG PO DAILY for 3 Days, #6 TAB Prov:DAVID PAGE MD 10/15/24 Potassium Chloride (Potassium Chloride ER) 10 Meq Tab, 10 MEQ PO QAM for 14 Days, #14 TAB Prov:DAVID PAGE MD 10/15/24 Furosemide (Lasix) 20 Mg Tb, 20 MG PO QAM for 14 Days, #14 TAB Prov:DAVID PAGE MD 10/15/24 Prednisone (Prednisone) 20 Mg Tab, 40 MG PO QAM for 7 Days, #14 MG Prov:DAVID PAGE MD 10/15/24 Pantoprazole Sodium Sesquihydr (Pantoprazole Sodium) 40 Mg Tab, 40 MG PO BID for 30 Days, #60 TAB 2 Refills Prov:SAMANTA BARROW RESIDENT 06/04/24 Reported Medications Cetirizine Hcl (Kls Aller-Sully) 10 Mg Tab, 10 MG PO DAILY, TAB 06/03/24 Ferrous Sulfate (Ferosul) 325 Mg Tab, 325 MG PO BIDWM, TAB 06/03/24 Olmesartan Medoxomil (Olmesartan Medoxomil) 5 Mg Tab, 5 MG PO BID, TAB 01/27/24 Clonidine Hydrochloride (Clonidine Hcl) 0.1 Mg Tab, 1 TAB PO BID PRN 06/08/23 Information Source: Patient, Emergency Med Personnel Mode of Arrival: EMS Brought in by: EMS Timing: Hours Duration: Since onset Prehospital treatment: None Quality: Cramping Vomitus: None Stool: Black Severity: Moderate Recent: None Recent Hx of: None Pain Location: Epigastric Modifying Factors: Nothing Associated sign and symptoms: Diarrhea, Abdominal Pain Past Medical History PAST MEDICAL HISTORY: Cancer, COPD, HTN, [place] Surgical History: Appendectomy, Hernia Repair, Tonsillectomy Surgical History (Other): mitral valve prolapse, Family History Family History: Reviewed,noncontributory to illness Social History Smoker: Non-Smoker Alcohol: Denies ETOH Use Drugs: Denies Drug Use Lives In: Home Constitutional: denies: chills, diaphoresis, fatigue, fever, malaise, sweats, weakness, others EENTM: denies: blurred vision, double vision, ear bleeding, ear discharge, ear drainage, ear pain, ear ringing, eye pain, eye redness, hearing loss, mouth pain, mouth swelling, nasal discharge, nose bleeding, nose congestion, nose pain, photophobia, tearing, throat pain, throat swelling, voice changes, others Respiratory: denies: cough, hemoptysis, orthopnea, SOB at rest, shortness of breath, SOB with excertion, stridor, wheezing, others Cardiovascular: denies: chest pain, dizzy spells, diaphoresis, Dyspnea on exertion, edema, irregular heart beat, left arm pain, lightheadedness, palpitations, PND, syncope, others Gastrointestinal: reports: abdominal pain, diarrhea; denies: abdomen distended, blood streaked bowels, constipated, dysphagia, difficulty swallowing, hem atemesis, melena, nausea, poor appetite, poor fluid intake, rectal bleeding, rectal pain, vomiting, others Genitourinary: denies: burning, dysuria, flank pain, frequency, hematuria, incontinence, penile discharge, penile sore, pain, testicle pain, testicle swelling, urgency, others Neurological: denies: dizziness, fainting, headache, left sided numbness, left sided weakness, numbness, paresthesia, pre-existing deficit, right sided numbness, right sided weakness, seizure, speech problems, tingling, tremors, weakness, others Musculoskeletal: denies: back pain, gout, joint pain, joint swelling, muscle pain, muscle stiffness, neck pain, others Integumetry: denies: bruises, change in color, change in hair/nails, dryness, laceration, lesions, lumps, rash, wounds, others Allergic/Immunocompromised: denies: Difficulty Healing, Frequent Infections, Hives, Itching, others Hematologic/Lymphatic: denies: anemia, blood clots, easy bleeding, easy bruising, swollen glands, others Endocrine: denies: excessive hunger, excessive sweating, excessive thirst, excessive urination, flushing, intolerance to cold, intolerance to heat, unexplained weight gain, unexplained weight loss, others Psychiatric: denies: anxiety, bipolar disorder, depression, hopeless, panic disorder, schizophrenia, sleepless, suicidal, others All Other Systems: Reviewed and Negative Physical Exam General Appearance: Moderate Distress HEENT: Normal ENT Inspection, Pharynx Normal, TMs Normal Neck: Full Range of Motion, Non-Tender, Normal, Normal Inspection Respiratory: Chest Non-Tender, Lungs Clear, No Accessory Muscle Use, No Respiratory Distress, Normal Breath Sounds Cardiovascular: No Edema, No JVD, No Murmur, No Gallop, Normal Peripheral Pulses, Regular Rate/Rhythm Breast Exam: Deferred Gastrointestinal: Diffuse, No Organomegaly, No Pulsatile Mass, Normal Bowel Sounds, Soft, Tenderness Genitalia: Deferred Pelvic: Deferred Rectal: Deferred Extremities: No calf tenderness, Normal capillary refill, Normal inspection, Normal range of motion, Non-tender, No pedal edema Musculoskeletal : Apperance: Normal Neurologic: Alert, [employer] II-XII nml as Tested, Motor Weakness, Normal Affect, Normal Mood, No Sensory Deficits Cerebellar Function: Normal Reflexes: Normal Skin: Dry, Normal Color, Warm Lymphatic: No Adenopathy EKG EKG : Pulse Rate (adult): 77 [place]: Normal Cardiac Rhythm: NSR Block: None Hypertrophy: None ST: Normal Was a procedure done? Was a procedure done?: No GI differential Dx Differential Diagnosis: Diverticular disease, Gastroenteritis, GI hemorrhage, Pancreatitis, Dehydration, Food Poisoning, Bacterial, Viral Other Differential Diagnosis colitis, enteritis X-Ray, Labs, Meds, VS Vital Signs Date Time Temp Pulse Resp B/P (MAP) Pulse Ox O2 Delivery O2 Flow Rate FiO2 11/16/24 13:24 77 11/16/24 13:18 77 11/16/24 13:05 97.3 76 18 156/76 (102) 97 Lab Test 11/16/24 13:24 Range/Units White Blood Count 6.1 4.4-10.8 10^3/uL Red Blood Count 4.16 L 4.5-5.90 10^6/uL Hemoglobin 13.6 13.5-17.5 g/dL Hematocrit 39.7 L 41.0-53.0 % Mean Corpuscular Volume 95.3 80.0-100.0 fL Mean Corpuscular Hemoglobin 32.7 H 28.0-32.0 pg Mean Corpuscular Hemoglobin Concent 34.3 32.0-36.0 g/dL Red Cell Distribution Width 14.2 11.8-14.3 % Platelet Count 164 140-450 10^3/uL Mean Platelet Volume 9.1 6.9-10.8 fL Neutrophils (%) (Auto) 74.2 37.0-80.0 % Lymphocytes (%) (Auto) 13.1 10.0-50.0 % Monocytes (%) (Auto) 9.0 0.0-12.0 % Eosinophils (%) (Auto) 3.0 0.0-7.0 % Basophils (%) (Auto) 0.7 0.0-2.0 % Neutrophils # (Auto) 4.5 1.6-8.6 10 ^3/uL Lymphocytes # (Auto) 0.8 0.4-5.4 10 ^3/uL Monocytes # (Auto) 0.5 0-1.3 10 ^3/uL Eosinophils # (Auto) 0.2 0-0.8 10 ^3/uL Basophils # (Auto) 0 0-0.2 10 ^3/uL Nucleated Red Blood Cells 0.1 % Sodium Level 135 L 136-145 mmol/L Potassium Level 4.8 3.5-5.1 mmol/L Chloride Level 103 98-107 mmol/L Carbon Dioxide Level 24 20-31 mmol/L Anion Gap 8 5-15 Blood Urea Nitrogen 30 H 9-23 mg/dL Creatinine 1.34 H 0.700-1.30 mg/dL Glomerular Filtration Rate Calc 53 >90 mL/min BUN/Creatinine Ratio 22.4 H 10.0-20.0 Serum Glucose 88 74-106 mg/dL Calcium Level 10.5 H 8.7-10.4 mg/dL Total Bilirubin 0.9 0.2-1.0 mg/dL Aspartate Amino Transferase (AST) 21 13-40 U/L Alanine Aminotransferase (ALT) 17 7-40 U/L Alkaline Phosphatase 99 46-116 U/L Total Protein 8.2 5.7-8.2 g/dL Albumin 4.9 H 3.2-4.8 g/dL Lipase 79 H 12-53 U/L Current Medications Medications (Trade) Dose Ordered Sig/[place]ano Route Start Time Stop Time Status Last Admin Sodium Chloride 500 ml @ 500 mls/hr Q1H ONCE IVB 11/16/24 13:00 11/16/24 13:59 DC 11/16/24 15:19 Pantoprazole Sodium (Protonix) 40 mg ONCE ONCE IV 11/16/24 13:00 11/16/24 13:01 DC 11/16/24 15:19 Exam: CT CT AB PEL WO CON-NO ORAL OR IV IMPRESSION: Borderline distended fluid-filled small bowel loops measuring up to 2.9 cm with transition point over The left midabdomen. Correlate for early bowel obstruction. Question right hemicolectomy. Descending colon and sigmoid diverticulosis without diverticulitis. Small hiatal hernia. Bilateral renal cysts with 1.5 cm exophytic right posterior renal hypodense lesion which does not measure simple fluid; unchanged from 2022. Questionable mild rectal prolapse ; unchanged from prior imagings. Additional findings as above. At this time the patient was given Protonix 40 mg IV push The patient was given normal saline at a 500 cc bolus. There is a concern that this is an early bowel obstruction. An NG-tube I am sure will be ordered by the hospitalist. A surgery consult will be obtained. The CBC is within normal limits The chemistry panel shows a BUN of 30 and a creatinine of 1.34 The lipase is elevated at 79 The patient was being admitted to the hospitalist Images Reviewed?: Images reviewed and evaluated by me Time of 1ST Reevaluation: 13:40 Reevaluation 1ST: Unchanged Patient Education/Counseling: Diagnosis, Treatment Family Education/Counseling: No Family Present Departure 1 Departure Time of Disposition: 17:05 Impression: Primary Impression: Intractable abdominal pain Additional Impression: Small bowel obstruction Disposition: ADMITTED INPATIENT Admit to: Med Surg Condition: Fair Critical Care Note Critical Care Time?: No Stability Stability form required: No Heart Score Heart Score: Heart Score Response (Comments) Value History N/A 0 EKG N/A 0 Age N/A 0 Risk Factors N/A 0 Troponin N/A 0 Total 0 I personally scribed for LALITO WELLS MD ([email or web address]) on 11/16/24 at 13:24. Electronically submitted by Shell Lira ([email or web address]). I personally scribed for LALITO WELLS MD ([email or web address]) on 11/16/24 at 14:15. Electronically submitted by Shell Lira ([email or web address]). LALITO WELLS MD Nov 16, 2024 13:24
[2024-11-16 13:46] LABS: Basophils # (auto) 0 10 ^3/uL (0-0.2); Basophils % (auto) 0.7 % (0.0-2.0); Eosinophils # (auto) 0.2 10 ^3/uL (0-0.8); Hematocrit 39.7 % (41.0-53.0); Hemoglobin 13.6 g/dL (13.5-17.5); Lymphocytes # (auto) 0.8 10 ^3/uL (0.4-5.4); Lymphocytes % (auto) 13.1 % (10.0-50.0); Mean Corpuscular Hemoglobin 32.7 pg (28.0-32.0); Mean Corpuscular Hgb Conc. 34.3 g/dL (32.0-36.0); Mean Corpuscular Volume 95.3 fL (80.0-100.0); Monocytes # (auto) 0.5 10 ^3/uL (0-1.3); Neutrophils # (auto) 4.5 10 ^3/uL (1.6-8.6); Neutrophils % (auto) 74.2 % (37.0-80.0); Nucleated Red Blood Cells % 0.1 %; Platelet Count (auto) 164 10^3/uL (140-450); Red Blood Cells 4.16 10^6/uL (4.5-5.90); Red Cell Distribution Width 14.2 % (11.8-14.3); White Blood Cell 6.1 10^3/uL (4.4-10.8)
--- NOTE | 2024-11-16 13:46 | DVH ---
Exam: CT CT AB PEL WO CON-NO ORAL OR IV History: pain Comparison Study: 05/11/2024 report only and 03/06/2023 TECHNIQUE: Multidetector CT of the abdomen and pelvis without IV contrast. Axial, coronal and sagitta l multiplanar reformats were obtained from the axial data set by the technologist. Radiation Dose Information: CT Dose: CTDI volume is 5.6 mGy. Dose-length product is 287.11 mGy*cm FINDINGS: Bibasilar atelectasis. Mild cardiomegaly. Redemonstration of 1.3 cm hepatic cyst.. Otherwise, liver, spleen, pancreas and adrenal glands unrema rkable. 1.8 cm left renal interpolar region cyst with 3.9 cm right renal upper pole cyst. Redemonstration of 1.5 cm exophytic right posterior renal hypodense lesion which does not measure simple fluid. No hydronephrosis bilaterally. Urinary bladder is [id number] distended. Prostate is unremarka ble. Small hiatal hernia. Stomach is unremarkable. There is diastasis recti with small supraumbilical kee ia. Fluid-filled bowel loops seen extending into the small hernia no transition point in close proxim ity to the hernia. Small bowel loops are fluid-filled and borderline distended measuring up to 2.9 cm with transition point of the left midabdomen (axial image 37 to 39). The appendix is not visualized . The ascending and transverse colons are not well-visualized with postsurgical changes of the bowel of the left upper abdominal quadrant. Question right hemicolectomy. There is descending colon and si gmoid diverticulosis with no evidence of diverticulitis. Streak artifact from external structure at t he level of the left pelvis limits evaluation of the adjacent structures. Questionable mild rectal pr olapse. No intraperitoneal free air or free fluid. Mesenteric fat containing small right posterior diaphragma tic hernia. No evidence of aortic aneurysm. Moderate to heavy atherosclerotic calcification of the aorta and [place] ateral iliacs. Mild dilatation of the infrarenal aorta up to 2.5 cm with mild dilatation of the dista l aorta up to 2.8 cm. No significant lymphadenopathy. Small fat containing left inguinal hernia. The soft tissues are unremarkable. No destructive osseous lesions are noted. IMPRESSION: Borderline distended fluid-filled small bowel loops measuring up to 2.9 cm with transition point over The left midabdomen. Correlate for early bowel obstruction. Question right hemicolectomy. Descending colon and sigmoid diverticulosis without diverticulitis. Small hiatal hernia. Bilateral renal cysts with 1.5 cm exophytic right posterior renal hypodense lesion which does not nurys sure simple fluid; unchanged from 2022. Questionable mild rectal prolapse ; unchanged from prior imagings. Additional findings as above.
[2024-11-16 14:30] LABS: Alanine Aminotransferase 17 U/L (7-40); Alkaline Phosphatase 99 U/L (46-116); Anion Gap 8 (5-15); Aspartate Aminotransferase 21 U/L (13-40); BUN/Creatinine Ratio 22.4 (10.0-20.0); Bilirubin, Total 0.9 mg/dL (0.2-1.0); Carbon Dioxide 24 mmol/L (20-31); Chloride 103 mmol/L (98-107); Glucose 88 mg/dL (74-106); Potassium 4.8 mmol/L (3.5-5.1); Total Protein 8.2 g/dL (5.7-8.2)
[2024-11-16 14:31] LABS: Albumin 4.9 g/dL (3.2-4.8); Blood Urea Nitrogen 30 mg/dL (9-23); Calcium 10.5 mg/dL (8.7-10.4); Lipase 79 U/L (12-53); Sodium 135 mmol/L (136-145)
[2024-11-16] MEDS ORDERED: MORPHINE SULFATE INJ 2 MG/ml SYRG IV PRN (15:15)
[2024-11-16] MEDS ORDERED: HYDROcodone-ACET 5/325MG TAB PO PRN (15:15)
[2024-11-16] MEDS ORDERED: NITROGLYCERIN 0.4 MG SL TAB SL PRN (15:15)
[2024-11-16] MEDS: SODIUM CHLORIDE 0.9% 500 ML IVB ONE (15:19)
[2024-11-16] MEDS: PANTOPRAZOLE 40 MG/10 ML VIAL INJ IV ONE (15:19)
[2024-11-16 15:23] VITALS: PULSE 80; RESP 16; O2SAT 96
--- NOTE | 2024-11-16 15:33 | DVHHP2 ---
History of Present Illness Reason for Visit: Abdominal pain History of Present Illness Christoph Alex is an 83-year-old male with past medical history of cancer, hypertension, COPD, and mitral valve prolapse, who came in with complaints of abdominal pain and diarrhea. Patient states the diarrhea started last night 2044, continued for hours, resumed this morning, and the stool was dark and he saw blood in the stool. He states the abdominal pain began this morning. CT abdomen/pelvis showed possible small bowel obstruction. 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 The first was benign, the 2 was for cancer), Tonsillectomy Smoke: No ALCOHOL: none Drugs: None Lives: with Family Domestic Violence: Neg Review of Systems Constitutional: No: Fever, Chills, Sweats, Weakness, Malaise, Other Eyes: No: Pain, Vision change, Conjunctivae inflammation, Eyelid inflammation, Other, Redness ENT: No: Ear pain, Ear discharge, Nose pain, Nose discharge, Nose congestion, Mouth pain, Mouth swelling, Throat pain, Throat swelling, Other Respiratory: No: Cough, Dry, Shortness of breath, SOB with excertion, Wheezing, Hemoptysis, Pleuritic Pain, Sputum, Wheezing, Other Cardiovascular: No: Chest Pain, Palpitations, Orthopnea, Paroxysmal Noc. 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 PT STATED RECIEVING PCN IN 1950, ENDORSED HIVES AND ITCHING. ALSO STATED RECIEVING PCN 15 YEARS AGO AT [facility] EXPERIENCED SOB AND SWELLING OF THROAT. DOES NOT REMEMBER THE NAMES OF ANY ABX AND HAS NOT TAKEN ANY PCN ABX SINCE. Aspirin (Verified Allergy, Unknown, 07/27/23) Erythromycin (Verified Allergy, Unknown, 02/14/23) Exam Vital Signs Vital Signs Date Time Temp Pulse Resp B/P (MAP) Pulse Ox O2 Delivery O2 Flow Rate FiO2 11/16/24 13:24 77 11/16/24 13:05 97.3 18 156/76 (102) 97 General Appearance: Alert, Oriented X3, Cooperative, moderate distress HEENT: Atraumatic, PERRLA Respiratory: Clear to auscultation, Normal air movement Cardiovascular: Regular rate, Normal S1, Normal S2 Abdominal: Soft, Other (Tenderness on palpitation) Extremities: No clubbing, No cyanosis, No edema, Normal pulses Skin: No rashes, No breakdown, No significant lesion Neuro: Normal gait, Normal speech, Strength at 5/5 X4 ext Psych/Mental Status: Mental status NL, Mood NL Labs/Xrays Labs Test 11/16/24 13:24 Range/Units White Blood Count 6.1 4.4-10.8 10^3/uL Red Blood Count 4.16 L 4.5-5.90 10^6/uL Hemoglobin 13.6 13.5-17.5 g/dL Hematocrit 39.7 L 41.0-53.0 % Mean Corpuscular Volume 95.3 80.0-100.0 fL Mean Corpuscular Hemoglobin 32.7 H 28.0-32.0 pg Mean Corpuscular Hemoglobin Concent 34.3 32.0-36.0 g/dL Red Cell Distribution Width 14.2 11.8-14.3 % Platelet Count 164 140-450 10^3/uL Mean Platelet Volume 9.1 6.9-10.8 fL Neutrophils (%) (Auto) 74.2 37.0-80.0 % Lymphocytes (%) (Auto) 13.1 10.0-50.0 % Monocytes (%) (Auto) 9.0 0.0-12.0 % Eosinophils (%) (Auto) 3.0 0.0-7.0 % Basophils (%) (Auto) 0.7 0.0-2.0 % Neutrophils # (Auto) 4.5 1.6-8.6 10 ^3/uL Lymphocytes # (Auto) 0.8 0.4-5.4 10 ^3/uL Monocytes # (Auto) 0.5 0-1.3 10 ^3/uL Eosinophils # (Auto) 0.2 0-0.8 10 ^3/uL Basophils # (Auto) 0 0-0.2 10 ^3/uL Nucleated Red Blood Cells 0.1 % Sodium Level 135 L 136-145 mmol/L Potassium Level 4.8 3.5-5.1 mmol/L Chloride Level 103 98-107 mmol/L Carbon Dioxide Level 24 20-31 mmol/L Anion Gap 8 5-15 Blood Urea Nitrogen 30 H 9-23 mg/dL Creatinine 1.34 H 0.700-1.30 mg/dL Glomerular Filtration Rate Calc 53 >90 mL/min BUN/Creatinine Ratio 22.4 H 10.0-20.0 Serum Glucose 88 74-106 mg/dL Calcium Level 10.5 H 8.7-10.4 mg/dL Total Bilirubin 0.9 0.2-1.0 mg/dL Aspartate Amino Transferase (AST) 21 13-40 U/L Alanine Aminotransferase (ALT) 17 7-40 U/L Alkaline Phosphatase 99 46-116 U/L Total Protein 8.2 5.7-8.2 g/dL Albumin 4.9 H 3.2-4.8 g/dL Lipase 79 H 12-53 U/L Exam: CT CT AB PEL WO CON-NO ORAL OR IV FINDINGS: Bibasilar atelectasis. Mild cardiomegaly. Redemonstration of 1.3 cm hepatic cyst.. Otherwise, liver, spleen, pancreas and adrenal glands unremarkable. 1.8 cm left renal interpolar region cyst with 3.9 cm right renal upper pole cy st. Redemonstration of 1.5 cm exophytic right posterior renal hypodense lesion which does not measure simple fluid. No hydronephrosis bilaterally. Urinary bladder is [id number] distended. Prostate is unremarkable. Small hiatal hernia. Stomach is unremarkable. There is diastasis recti with small supraumbilical hernia. Fluid-filled bowel loops seen extending into the small hernia no transition point in close proximity to the hernia. Small bowel loops are fluid-filled and borderline distended measuring up to 2.9 cm with transition point of the left midabdomen (axial image 37 to 39). The appendix is not visualized. The ascending and transverse colons are not well-visualized with postsurgical changes of the bowel of the left upper abdominal quadrant. Question right hemicolectomy. There is descending colon and sigmoid diverticulosis with no evidence of diverticulitis. Streak artifact from external structure at the level of the left pelvis limits evaluation of the adjacent structures. Questionable mild rectal prolapse. No intraperitoneal free air or free fluid. Mesenteric fat containing small right posterior diaphragmatic hernia. No evidence of aortic aneurysm. Moderate to heavy atherosclerotic calcification of the aorta and bilateral iliacs. Mild dilatation of the infrarenal aorta up to 2.5 cm with mild dilatation of the distal aorta up to 2.8 cm. No significant lymphadenopathy. Small fat containing left inguinal hernia. The soft tissues are unremarkable. No destructive osseous lesions are noted. IMPRESSION: Borderline distended fluid-filled small bowel loops measuring up to 2.9 cm with transition point over The left midabdomen. Correlate for early bowel obstruction. Question right hemicolectomy. Descending colon and sigmoid diverticulosis with out diverticulitis. Small hiatal hernia. Bilateral renal cysts with 1.5 cm exophytic right posterior renal hypodense lesion which does not measure simple fluid; unchanged from 202. Questionable mild rectal prolapse ; unchanged from prior imagings. Additional findings as above. Assessment/Plan Assessment/Plan Assessment: SBO (small bowel obstruction), Possible GI bleed, Malnutrition, COPD, Hypertension, Plan: Admit to Tele, Surgical consult, Place NG tube, NG tube to LIS, NPO except ice chips, IV hydration, IV antibiotics, Stool for occult blood, Consider small bowel follow through, Home medications reconciled, Plan discussed with: Patient Date of Service: Nov 16, 2024 Billing Provider: LILLIAM CHOW Common Visit Codes: [id number] INP/OBS CARE (HIGH) LILLIAM CHOW Nov 16, 2024 15:33
[2024-11-16] MEDS: cefTRIAXone 1GM/50ML D5W 50 ML IV ONE (16:08)
[2024-11-16] MEDS: SODIUM CHLORIDE 0.9% 1,000 ML IV SCH (16:09)
--- NOTE | 2024-11-16 19:07 | ECG ---
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
[2024-11-16] MEDS: FERROUS SULFATE 325mg EC TAB PO SCH (19:42)
[2024-11-16] MEDS: ACETAMINOPHEN 325 MG TAB PO PRN (19:57)
[2024-11-16] MEDS: LOSARTAN POTASSIUM 25 MG TAB PO SCH (22:00)
[2024-11-16] MEDS: PANTOPRAZOLE 40 MG TAB PO SCH (22:00)
[2024-11-16 23:09] VITALS: PULSE 86; RESP 21; O2SAT 96
[2024-11-17] VITALS (8 sets, daily range): BP systolic 97–154; BP diastolic 54–73; PULSE 77–105; RESP 15–21; TEMP 97.3–98.3; O2SAT 93–97
[2024-11-17] MEDS: MORPHINE SULFATE INJ 2 MG/ml SYRG IV PRN (01:19)
[2024-11-17] MEDS: metroNIDAZOLE 500MG/100ML 100 ML IV SCH (01:44)
[2024-11-17] MEDS: hydrALAZINE HCL 20 MG/ML VL IV ONE (02:15)
[2024-11-17] MEDS: cefTRIAXone 1GM/50ML D5W 50 ML IV SCH (09:45)
[2024-11-17 10:55] LABS: Basophils # (auto) 0 10 ^3/uL (0-0.2); Basophils % (auto) 0.5 % (0.0-2.0); Eosinophils # (auto) 0.1 10 ^3/uL (0-0.8); Eosinophils % (auto) 2.4 % (0.0-7.0); Hematocrit 38.8 % (41.0-53.0); Lymphocytes # (auto) 0.5 10 ^3/uL (0.4-5.4); Lymphocytes % (auto) 11.5 % (10.0-50.0); Mean Corpuscular Hemoglobin 32.3 pg (28.0-32.0); Mean Corpuscular Hgb Conc. 33.4 g/dL (32.0-36.0); Mean Corpuscular Volume 96.8 fL (80.0-100.0); Monocytes # (auto) 0.5 10 ^3/uL (0-1.3); Monocytes % (auto) 10.6 % (0.0-12.0); Neutrophils # (auto) 3.3 10 ^3/uL (1.6-8.6); Nucleated Red Blood Cells % 0.2 %; Platelet Count (auto) 154 10^3/uL (140-450); Red Blood Cells 4.01 10^6/uL (4.5-5.90); Red Cell Distribution Width 14.4 % (11.8-14.3); White Blood Cell 4.4 10^3/uL (4.4-10.8)
--- NOTE | 2024-11-17 10:57 | DVHPN2 ---
Subjective 83-year-old male was admitted due to diarrhea CT scan of the abdomen showed possible bowel obstruction so he was admitted for observation This morning he said he had a bowel movement last night No abdominal pain No nausea no vomiting He is hungry Changes from previous H/P or p: Changes Eyes: No Pain, No Vision change, No Conjunctivae inflammation, No Eyelid inflammation, No Other, No Redness ENT: No Ear pain, No Ear discharge, No Nose pain, No Nose discharge, No Nose congestion, No Mouth pain, No Mouth swelling, No Throat pain, No Throat swelling, No Other Cardiovascular: No Chest Pain, No Palpitations, No Orthopnea, No Paroxysmal Noc. Dyspnea, No Edema, No Lt Headedness, No Other Respiratory: No Cough, No Dry, No Shortness of breath, No SOB with excertion, No Wheezing, No Hemoptysis, No Pleuritic Pain, No Sputum, No Other Gastrointestinal: No Nausea, No Vomiting; Abdominal Pain, Diarrhea; No Constipation; Melena; No Hematochezia, No Other Genitourinary: No Dysuria, No Frequency, No Incontinence, No Hematuria, No Retention, No Other Musculoskeletal: No other, No neck pain, No shoulder pain, No arm pain, No back pain, No hand pain, No leg pain, No foot pain Skin: No Rash, No Lesions, No Jaundice, No Bruising, No Other Objective Vitals Vital Signs Date Time Temp Pulse Resp B/P (MAP) Pulse Ox O2 Delivery O2 Flow Rate FiO2 11/17/24 09:46 132/64 11/17/24 07:57 97.7 87 16 97 97.7 11/16/24 23:09 Room Air* 0 21 Intake/Output Intake and Output 11/17/24 07:00 Intake Total 840 ml Output Total 0 ml Balance 840 ml Intake Oral 240 ml IV Total 600 ml Output Urine Total 0 ml General Appearance: Alert, Oriented X3, Cooperative Lungs: Clear to auscultation, Normal air movement Cardiovascular: Regular rate, Normal S1, Normal S2 Abdomen: Normal bowel sounds, Soft, No tenderness Extremities: No edema Medications Current Medications Medications Dose Ordered Sig/Chano Route Start Time Stop Time Status Last Admin Dose Admin Sodium Chloride 1,000 ml @ 100 mls/hr Q10H IV 11/16/24 15:15 11/17/24 01:44 100 MLS/HR Acetaminophen/ Hydrocodone Bitart 1 tab Q4HP PRN PO 11/16/24 15:15 Ondansetron HCl 4 mg Q4HP PRN IV 11/16/24 15:15 Acetaminophen 650 mg Q6HP PRN PO 11/16/24 15:15 11/16/24 19:57 650 MG Morphine Sulfate 2 mg Q4HPRN PRN IV 11/16/24 15:15 11/17/24 01:19 2 MG Nitroglycerin 0.4 mg Q5MINP PRN SL 11/16/24 15:15 Morphine Sulfate 2 mg Q30M PRN IV 11/16/24 15:15 Ceftriaxone Sodium 50 ml @ 100 mls/hr DAILY@09 IV 11/17/24 09:00 11/17/24 09:45 100 MLS/HR Metronidazole 100 ml @ 100 mls/hr Q8HR IV 11/16/24 22:00 11/17/24 05:20 100 MLS/HR Pantoprazole Sodium 40 mg BID PO 11/16/24 22:00 Patient Own Medication 10 mg DAILY PO 11/17/24 10:00 Ferrous Sulfate 325 mg BIDWM PO 11/16/24 18:00 11/16/24 19:42 325 MG Losartan Potassium 25 mg BID PO 11/16/24 22:00 Laboratory Results Chemistry Test 11/16/24 13:24 11/17/24 10:15 Albumin 4.9 g/dL (3.2-4.8) H Pending Calcium Level 10.5 mg/dL (8.7-10.4) H Pending Total Protein 8.2 g/dL (5.7-8.2) Pending Lipid panel Test 11/16/24 13:24 Lipase 79 U/L (12-53) H LFT Test 11/16/24 13:24 11/17/24 10:15 Alanine Aminotransferase (ALT) 17 U/L (7-40) Pending Alkaline Phosphatase 99 U/L (46-116) Pending Aspartate Amino Transferase (AST) 21 U/L (13-40) Pending Total Bilirubin 0.9 mg/dL (0.2-1.0) Pending Assessment/Plan Assessment/Plan Acute gastroenteritis, most likely viral Chronic kidney disease Hypertension History of colon cancer COPD Mitral valve prolapse Hyponatremia Plan Discontinue the IV fluids Start full liquid diet and then soft diet for dinner if he tolerates it Surgical consult No need for NG tube No need for antibiotics P.r.n. hydralazine Monitor overnight and if he does well then we will discharge the patient home in the morning Full code Advance directives discussed for 20 minute Plan discussed with: Patient Date of Service: Nov 17, 2024 Billing Provider: ALEXYS FUCHS MD Common Visit Codes: [id number] INP/OBS CARE(HIGH) Secondary Visit Codes: [id number] CARE PLAN 30 MINUTES ALEXYS FUCHS MD Nov 17, 2024 10:57
[2024-11-17] MEDS ORDERED: hydrALAZINE HCL 10 MG TAB PO PRN (11:00)
[2024-11-17 11:11] LABS: Alanine Aminotransferase 11 U/L (7-40); Albumin 4.3 g/dL (3.2-4.8); Alkaline Phosphatase 89 U/L (46-116); Anion Gap 11 (5-15); Aspartate Aminotransferase 17 U/L (13-40); BUN/Creatinine Ratio 21.1 (10.0-20.0); Bilirubin, Total 0.9 mg/dL (0.2-1.0); Calcium 9.7 mg/dL (8.7-10.4); Carbon Dioxide 20 mmol/L (20-31); Chloride 106 mmol/L (98-107); Glucose 91 mg/dL (74-106); Potassium 4.4 mmol/L (3.5-5.1); Sodium 137 mmol/L (136-145); Total Protein 7.3 g/dL (5.7-8.2)
[2024-11-17 11:15] LABS: Blood Urea Nitrogen 26 mg/dL (9-23)
[2024-11-17] MEDS ORDERED: MORPHINE SULFATE INJ 2 MG/ml SYRG IV PRN ×2 (13:15)
--- NOTE | 2024-11-17 14:04 | DVH ---
INDICATION: sbo TECHNIQUE: Multiple views of the abdomen were obtained. COMPARISON: None FINDINGS: Diffusely dilated loops of small bowel measuring up to 5cm. There is no evidence of free a ir. The lung bases are clear. The visualized osseous structures appear intact. IMPRESSION: 1. Diffusely dilated loops of small bowel measuring up to 5cm. .
--- NOTE | 2024-11-17 18:09 | DVHINCON2 ---
DATE OF CONSULTATION: 11/17/2024 REQUESTING PROVIDER: SAUL Luevano CONSULTING PHYSICIAN: Jose Arita MD REASON FOR CONSULTATION: Small-bowel obstruction. HISTORY OF PRESENT ILLNESS: The patient is an 83-year-old male known to my service who came to the Emergency Department complaining of diarrhea. Denied fevers, chills, nausea, vomiting, hemoptysis, hematemesis, bilious emesis, chest pain, abdominal pain, shortness of breath, unintentional weight loss, night sweats, melena or hematochezia. Currently, he feels well. PAST MEDICAL HISTORY: Hypertension, hyperlipidemia, melanoma of right colon, transverse colon cancer, asthma, CAD and possible MS. PAST SURGICAL HISTORY: Cataract surgery, hiatal hernia repair, appendectomy, tonsillectomy, right hemicolectomy and transverse colectomy. MEDICATIONS: Reviewed, per medication administration record. ALLERGIES: ERYTHROMYCIN, POTASSIUM AND PENICILLIN. SOCIAL HISTORY: Denies smoking cigarettes, alcohol use, drug use, marijuana use or vaping. FAMILY HISTORY: Noncontributory. REVIEW OF SYSTEMS: NEURO: Negative. PSYCHIATRIC: Negative. ENDOCRINE: Negative. ENT: Negative. CARDIOVASCULAR: Negative. PULMONARY: Negative. GASTROINTESTINAL: As above. GENITOURINARY: Negative. HEME/ID: Negative. LYMPHATICS: Negative. MUSCULOSKELETAL: Negative. SKIN: Negative. PHYSICAL EXAMINATION: GENERAL: He is lying comfortably in bed. He is calm, pleasant and in no distress. He is afebrile with stable vital signs with exception of hypertension. NEUROLOGIC: Grossly intact, alert, awake and oriented x3. HEAD, EARS, EYES, NOSE AND THROAT: Normocephalic. Pupils equally round. Extraocular muscles intact. Trachea is midline. HEART: Normal heart rate and hypertensive. LUNGS: Effortless breathing. Normal oxygen saturation and respiratory rate. ABDOMEN: Soft, mildly distended and nontender. Reducible supraumbilical incisional hernia. No palpable masses, hernias or visceromegaly. EXTREMITIES: No edema or tenderness. LABORATORY DATA: Normal white blood cell count, hemoglobin 13, hematocrit 38, platelets 154. Chemistry remarkable for elevated BUN 26. CT scan of the abdomen and pelvis reviewed with corresponding report. Multiple air fluid levels with distended small bowel. Patent anastomosis. Stool and gas in the descending, sigmoid and rectum. ASSESSMENT: An 83-year-old male with a small-bowel obstruction. PLANS AND RECOMMENDATIONS: Recommend n.p.o. for now. Repeat abdominal x-ray to assess air gas intestinal pattern. DVT and GI prophylaxis. IV fluids. Recommendation will follow. Thank you for allowing me to participate in care of your patient. I will follow him with you MD LAURITA Olivas/MATTHEW TID: [id number] RECEIPT: [id number]
[2024-11-18] VITALS (8 sets, daily range): BP systolic 130–170; BP diastolic 50–76; PULSE 75–100; RESP 16–18; TEMP 97.4–98.4; O2SAT 93–99
[2024-11-18 07:07] LABS: Basophils # (auto) 0 10 ^3/uL (0-0.2); Basophils % (auto) 0.5 % (0.0-2.0); Eosinophils # (auto) 0.2 10 ^3/uL (0-0.8); Eosinophils % (auto) 4.8 % (0.0-7.0); Hematocrit 35.6 % (41.0-53.0); Hemoglobin 11.9 g/dL (13.5-17.5); Lymphocytes # (auto) 0.7 10 ^3/uL (0.4-5.4); Lymphocytes % (auto) 16.1 % (10.0-50.0); Mean Corpuscular Hemoglobin 32.1 pg (28.0-32.0); Mean Corpuscular Hgb Conc. 33.5 g/dL (32.0-36.0); Mean Corpuscular Volume 95.9 fL (80.0-100.0); Monocytes # (auto) 0.5 10 ^3/uL (0-1.3); Monocytes % (auto) 12.2 % (0.0-12.0); Neutrophils # (auto) 2.9 10 ^3/uL (1.6-8.6); Neutrophils % (auto) 66.4 % (37.0-80.0); Nucleated Red Blood Cells % 0.1 %; Platelet Count (auto) 159 10^3/uL (140-450); Red Blood Cells 3.71 10^6/uL (4.5-5.90); Red Cell Distribution Width 14.4 % (11.8-14.3); White Blood Cell 4.4 10^3/uL (4.4-10.8)
[2024-11-18 07:26] LABS: Alanine Aminotransferase 10 U/L (7-40); Alkaline Phosphatase 74 U/L (46-116); Anion Gap 8 (5-15); Aspartate Aminotransferase 16 U/L (13-40); BUN/Creatinine Ratio 18.5 (10.0-20.0); Blood Urea Nitrogen 22 mg/dL (9-23); Calcium 9.4 mg/dL (8.7-10.4); Carbon Dioxide 21 mmol/L (20-31); Glucose 93 mg/dL (74-106); Magnesium 1.9 mg/dL (1.6-2.6); Potassium 4.6 mmol/L (3.5-5.1); Sodium 137 mmol/L (136-145)
[2024-11-18 07:27] LABS: Bilirubin, Total 0.7 mg/dL (0.2-1.0); Total Protein 6.6 g/dL (5.7-8.2)
[2024-11-18 07:28] LABS: Chloride 108 mmol/L (98-107)
--- NOTE | 2024-11-18 10:38 | DVHPN2 ---
Progress Note Date Seen: Nov 18, 2024 Has the PT tested + for MRSA If YES, has PT been informed?: No Medical Necessity Reason Pt with a Central, PICC or Fol: No Subjective Review of Systems Seen earlier today. Denies N/V. Admitted to abdominal pain and diarrhea. Objective vital signs Vital Sign Date Time Temp Pulse Resp B/P (MAP) Pulse Ox O2 Delivery O2 Flow Rate FiO2 11/18/24 09:00 98.1 75 17 152/55 (87) 93 98.1 11/18/24 08:00 Room Air* 0 21 Total Intake and Output 11/17/24 11/17/24 11/18/24 15:00 23:00 07:00 Intake Total 400 ml 1550 ml 240 ml Output Total 500 ml 600 ml Balance 400 ml 1050 ml -360 ml medications Current Medications Medications Dose Ordered Sig/Chano Route Start Time Stop Time Status Last Admin Dose Admin Ondansetron HCl 4 mg Q4HP PRN IV 11/16/24 15:15 Nitroglycerin 0.4 mg Q5MINP PRN SL 11/16/24 15:15 Patient Own Medication 10 mg DAILY PO 11/17/24 10:00 Morphine Sulfate 2 mg Q2HP PRN IV 11/17/24 13:15 Morphine Sulfate 2 mg Q2HP PRN IV 11/17/24 13:15 Examination AFVSS. Abdomen soft, ND and NT laboratory and microbiology Laboratory Tests 11/18/24 06:34 Test 11/18/24 06:34 Range/Units Serum Glucose 93 74-106 mg/dL Labs and/or images reviewed: Labs reviewed by me Problem List/Assessment/Plan Problems(with codes): (1) SBO (small bowel obstruction) Problem List/Assessment/Plan SBO. Clinically resolved. Still with diarrhea and abdominal pain. R/O PSBO. Will order AXR. Continue DVT/GI prophylaxis. Recommendations will follow after AXR Plan discussed with: Patient, Other (Dr. Garza) My Orders My Orders Orders - NURIS NEAL MD Procedure Category Date Status Time Morphine Sulfate PHA 11/17/24 In Process Injection 13:15 Morphine Sulfate PHA 11/17/24 In Process Injection 13:15 Kub Abdomen Single XY 11/17/24 Resulted View 13:22 Cardiac DIET 11/17/24 Transmitted Diet-2gna,Lofat,Lochol Dinner NURIS NEAL MD Nov 18, 2024 10:38
--- NOTE | 2024-11-18 11:36 | DVH ---
Exam: XY KUB ABDOMEN SINGLE VIEW Indication: Abdominal pain Comparison: XY KUB ABDOMEN SINGLE VIEW on DOS: 11/17/24 Technique: 1 radiographic views of the abdomen. Findings: Nonspecific bowel-gas pattern. Air-filled distention of small-bowel loops throughout the abdomen. There is no definite evidence for pneumoperitoneum. No abnormal calcifications noted. Impression: Nonspecific bowel-gas pattern.
[2024-11-18] MEDS: LOSARTAN POTASSIUM 25 MG TAB PO ONE (13:14)
[2024-11-18] MEDS: hydrALAZINE HCL 20 MG/ML VL IV PRN (14:11)
[2024-11-18] MEDS: GASTROGRAFIN 120 ML SOL ONE (14:13)
--- NOTE | 2024-11-18 17:31 | DVH ---
Procedure: XY SMALL BOWEL SERIES-W GASTROGRA Exam Date: 11/18/2024 02:30 PM Reason for study/Clinical History: R/O PSBO Comparison Study: None available at time of dictation. Technique: Single contrast small bowel series performed. Findings: Initial nickel operator view of the abdomen and pelvis appears demonstrates no acute process. Contrast is identified within the colon by 1 hour. This represents a normal small bowel transit time . Small bowel loops are normal in size. Normal mucosal pattern. No evidence of small bowel obstructi on, stricture, or mucosal abnormality. The terminal ileum is well visualized and is unremarkable. IMPRESSION: Normal small bowel series. END IMPRESSION:
[2024-11-18] MEDS: D5W/SOD CHL 0.45% 1,000 ML IV SCH (18:30)
--- NOTE | 2024-11-18 19:57 | DVHPN2 ---
Subjective He was having more abdominal pain today after breakfast No vomiting X-Ray: Nonspecific Small bowel series: Nl Changes from previous H/P or p: Changes Eyes: No Pain, No Vision change, No Conjunctivae inflammation, No Eyelid inflammation, No Other, No Redness ENT: No Ear pain, No Ear discharge, No Nose pain, No Nose discharge, No Nose congestion, No Mouth pain, No Mouth swelling, No Throat pain, No Throat swelling, No Other Cardiovascular: No Chest Pain, No Palpitations, No Orthopnea, No Paroxysmal Noc. Dyspnea, No Edema, No Lt Headedness, No Other Respiratory: No Cough, No Dry, No Shortness of breath, No SOB with excertion, No Wheezing, No Hemoptysis, No Pleuritic Pain, No Sputum, No Other Gastrointestinal: No Nausea, No Vomiting; Abdominal Pain, Diarrhea; No Constipation; Melena; No Hematochezia, No Other Genitourinary: No Dysuria, No Frequency, No Incontinence, No Hematuria, No Retention, No Other Musculoskeletal: No other, No neck pain, No shoulder pain, No arm pain, No back pain, No hand pain, No leg pain, No foot pain Skin: No Rash, No Lesions, No Jaundice, No Bruising, No Other Objective Vitals Vital Signs Date Time Temp Pulse Resp B/P (MAP) Pulse Ox O2 Delivery O2 Flow Rate FiO2 11/18/24 17:00 97.4 84 16 130/50 (76) 95 97.4 11/18/24 08:00 Room Air* 0 21 Intake/Output Intake and Output 11/18/24 07:00 Intake Total 2190 ml Output Total 1100 ml Balance 1090 ml Intake Oral 1740 ml IV Total 450 ml Output Urine Total 1100 ml General Appearance: Alert, Oriented X3, Cooperative Lungs: Clear to auscultation, Normal air movement Cardiovascular: Regular rate, Normal S1, Normal S2 Abdomen: Normal bowel sounds, Soft, No tenderness Extremities: No edema Medications Current Medications Medications Dose Ordered Sig/Chano Route Start Time Stop Time Status Last Admin Dose Admin Ondansetron HCl 4 mg Q4HP PRN IV 11/16/24 15:15 Nitroglycerin 0.4 mg Q5MINP PRN SL 11/16/24 15:15 Patient Own Medication 10 mg DAILY PO 11/17/24 10:00 Morphine Sulfate 2 mg Q2HP PRN IV 11/17/24 13:15 Hold Morphine Sulfate 2 mg Q2HP PRN IV 11/17/24 13:15 Hydralazine HCl 10 mg Q6HP PRN IV 11/18/24 13:00 11/18/24 14:11 10 MG Losartan Potassium 25 mg DAILY PO 11/19/24 10:00 Dextrose/Sodium Chloride 1,000 ml @ 75 mls/hr [id number] IV 11/18/24 16:30 11/18/24 18:30 75 MLS/HR Laboratory Results Laboratory Tests 11/18/24 06:34 Chemistry Test 11/18/24 06:34 Albumin 4.0 g/dL (3.2-4.8) Calcium Level 9.4 mg/dL (8.7-10.4) Magnesium Level 1.9 mg/dL (1.6-2.6) Total Protein 6.6 g/dL (5.7-8.2) LFT Test 11/18/24 06:34 Alanine Aminotransferase (ALT) 10 U/L (7-40) Alkaline Phosphatase 74 U/L (46-116) Aspartate Amino Transferase (AST) 16 U/L (13-40) Total Bilirubin 0.7 mg/dL (0.2-1.0) Assessment/Plan Assessment/Plan Acute gastroenteritis, most likely viral Chronic kidney disease Hypertension History of colon cancer COPD Mitral valve prolapse Hyponatremia Rule out bowel obstruction Plan Discontinue the IV fluids Start full liquid diet and then soft diet for dinner if he tolerates it Surgical consult No need for NG tube No need for antibiotics P.r.n. hydralazine Monitor overnight and if he does well then we will discharge the patient home in the morning Full code Advance directives discussed for 20 minute 11/18/24: Abd pain, r/o SBO h/o colon CA and surgery X-Ray nonspecific Bowel series: Neg NPO Surgical consult: Dr. Arita IV fluids Losartan home dose Monitor closely Start diet and monitor Plan discussed with: Patient My Orders Orders - ALEXYS FUCHS MD Procedure Category Date Status Time * [employer]inery [employer] CONS 11/18/24 Transmitted Consult Hydralazine Injection PHA 11/18/24 In Process (Apresoline Inject 13:00 Losartan Tablet PHA 11/19/24 In Process (Cozaar Tablet) 10:00 Npo (Nothing By DIET 11/18/24 Transmitted Mouth) Diet Dinner D5w/Sod Chl 0.45% PHA 11/18/24 In Process (D5w 1/2ns) 16:30 Date of Service: Nov 18, 2024 Billing Provider: ALEXYS FUCHS MD Common Visit Codes: [id number] INP/OBS CARE(HIGH) ALEXYS FUCHS MD Nov 18, 2024 19:57
[2024-11-18] MEDS: ONDANSETRON HCL 4 MG/2 ML VIAL IV PRN (22:13)
[2024-11-19] VITALS (8 sets, daily range): BP systolic 110–153; BP diastolic 53–60; PULSE 75–97; RESP 16–18; TEMP 97.5–97.7; O2SAT 94–98
[2024-11-19] MEDS: PANTOPRAZOLE 40 MG/10 ML VIAL INJ IV ONE (01:17)
[2024-11-19 01:38] LABS: Hematocrit 39.4 % (41.0-53.0); Hemoglobin 12.9 g/dL (13.5-17.5)
[2024-11-19 07:18] LABS: Potassium 4.1 mmol/L (3.5-5.1); Sodium 142 mmol/L (136-145)
[2024-11-19 07:19] LABS: Anion Gap 9 (5-15); Calcium 9.7 mg/dL (8.7-10.4); Carbon Dioxide 23 mmol/L (20-31)
[2024-11-19 07:24] LABS: BUN/Creatinine Ratio 15.9 (10.0-20.0); Blood Urea Nitrogen 22 mg/dL (9-23); Chloride 110 mmol/L (98-107)
[2024-11-19 07:25] LABS: Magnesium 1.9 mg/dL (1.6-2.6)
--- NOTE | 2024-11-19 07:37 | DVHINCON2 ---
Date of service: Nov 19, 2024 Referring Physician Diego Reason for Consultation GI bleeding History of Present Illness Patient is a 83-year-old male with a history significant for colon cancer status post resection, hypertension, COPD, mitral valve prolapse, admitted with symptoms of diarrhea, abdominal pain, initially admitted for small-bowel obstruction, however this appears to have been resolved. Patient were suspected GI bleed, states that he had a colonoscopy last year not sure of the results. Hemoglobin has decreased from 13-12 during this admission. Patient denies any hematochezia at this time, hematemesis, dysphagia, or odynophagia, prior endoscopy with Dr. Padilla of three months ago showing a hiatal hernia and an esophageal diverticulum as well as gastritis. Patient is suspected to have melena. 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 PT STATED RECIEVING PCN IN 1950, ENDORSED HIVES AND ITCHING. ALSO STATED RECIEVING PCN 15 YEARS AGO AT [facility] EXPERIENCED SOB AND SWELLING OF THROAT. DOES NOT REMEMBER THE NAMES OF ANY ABX AND HAS NOT TAKEN ANY PCN ABX SINCE. Aspirin (Verified Allergy, Unknown, 07/27/23) Erythromycin (Verified Allergy, Unknown, 02/14/23) Home Meds Active Scripts Albuterol Sulfate (VENTOLIN MDI) 90 Mcg Ih, 90 MCG IN Q8HP PRN for 30 Days, #120 INH Prov:DAVID PAGE MD 10/15/24 Azithromycin (ZITHROMAX TABLET) 250 Mg Tb, 500 MG PO DAILY for 3 Days, #6 TAB Prov:DAVID PAGE MD 10/15/24 Potassium Chloride (Potassium Chloride ER) 10 Meq Tab, 10 MEQ PO QAM for 14 Days, #14 TAB Prov:DAVID PAGE MD 10/15/24 Furosemide (Lasix) 20 Mg Tb, 20 MG PO QAM for 14 Days, #14 TAB Prov:DAVID PAGE MD 10/15/24 Prednisone (Prednisone) 20 Mg Tab, 40 MG PO QAM for 7 Days, #14 MG Prov:DAVID PAGE MD 10/15/24 Pantoprazole Sodium Sesquihydr (Pantoprazole Sodium) 40 Mg Tab, 40 MG PO BID for 30 Days, #60 TAB 2 Refills Prov:SAMANTA BARROW RESIDENT 06/04/24 Reported Medications Cetirizine Hcl (Kls Aller-Sully) 10 Mg Tab, 10 MG PO DAILY, TAB 06/03/24 Ferrous Sulfate (Ferosul) 325 Mg Tab, 325 MG PO BIDWM, TAB 06/03/24 Olmesartan Medoxomil (Olmesartan Medoxomil) 5 Mg Tab, 5 MG PO BID, TAB 01/27/24 Clonidine Hydrochloride (Clonidine Hcl) 0.1 Mg Tab, 1 TAB PO BID PRN 06/08/23 Current Medications Current Medications Medications (Trade) Dose Ordered Sig/Chano Route PRN Reason Start Time Stop Time Status Last Admin Hydralazine HCl (Apresoline Injection) 10 mg Q6HP PRN IV SBP>150 11/18/24 13:00 11/18/24 22:23 Losartan Potassium (Cozaar Tablet) 25 mg DAILY PO 11/19/24 10:00 Dextrose/Sodium Chloride 1,000 ml @ 75 mls/hr [id number] IV 11/18/24 16:30 11/19/24 06:45 Pantoprazole Sodium (Protonix) 40 mg BID IV 11/19/24 22:00 Review of Systems Review of systems as per HPI Vital Signs Vital Signs Date Time Temp Pulse Resp B/P (MAP) Pulse Ox O2 Delivery O2 Flow Rate FiO2 11/19/24 05:00 97.6 86 16 153/60 (91) 94 97.6 11/18/24 20:00 Room Air* 0 21 Physical Exam General: Alert and oriented x4 no distress HEENT: Normocephalic atraumatic extraocular movements were intact, pupils equal round reactive to light and accommodating Bitemporal wasting Heart: Regular rate and rhythm Abdomen: Soft nondistended mild tenderness palpation lower abdomen normoactive bowel sounds Extremity: No clubbing cyanosis or edema Labs/Diagnostic Data Labs Test 11/19/24 06:17 11/19/24 01:30 11/18/24 10:15 11/18/24 06:34 Range/Units Sodium Level 142 # 136-145 mmol/L Potassium Level 4.1 3.5-5.1 mmol/L Chloride Level 110 H 98-107 mmol/L Carbon Dioxide Level 23 20-31 mmol/L Anion Gap 9 5-15 Calcium Level 9.7 8.7-10.4 mg/dL Hemoglobin 12.9 L 13.5-17.5 g/dL Hematocrit 39.4 #L 41.0-53.0 % Stool Occult Blood Sample #3 Positive Negative White Blood Count 4.4 4.4-10.8 10^3/uL Red Blood Count 3.71 L 4.5-5.90 10^6/uL Mean Corpuscular Volume 95.9 80.0-100.0 fL Mean Corpuscular Hemoglobin 32.1 H 28.0-32.0 pg Mean Corpuscular Hemoglobin Concent 33.5 32.0-36.0 g/dL Red Cell Distribution Width 14.4 H 11.8-14.3 % Platelet Count 159 140-450 10^3/uL Mean Platelet Volume 9.3 6.9-10.8 fL Neutrophils (%) (Auto) 66.4 37.0-80.0 % Lymphocytes (%) (Auto) 16.1 10.0-50.0 % Monocytes (%) (Auto) 12.2 H 0.0-12.0 % Eosinophils (%) (Auto) 4.8 0.0-7.0 % Basophils (%) (Auto) 0.5 0.0-2.0 % Neutrophils # (Auto) 2.9 1.6-8.6 10 ^3/uL Lymphocytes # (Auto) 0.7 0.4-5.4 10 ^3/uL Monocytes # (Auto) 0.5 0-1.3 10 ^3/uL Eosinophils # (Auto) 0.2 0-0.8 10 ^3/uL Basophils # (Auto) 0 0-0.2 10 ^3/uL Nucleated Red Blood Cells 0.1 % Total Bilirubin 0.7 0.2-1.0 mg/dL Aspartate Amino Transferase (AST) 16 13-40 U/L Alanine Aminotransferase (ALT) 10 7-40 U/L Alkaline Phosphatase 74 46-116 U/L Total Protein 6.6 5.7-8.2 g/dL Albumin 4.0 3.2-4.8 g/dL Test 11/16/24 13:24 Range/Units Lipase 79 H 12-53 U/L Assessment 1. History of colon cancer 2. Small bowel obstruction resolved 3. Diarrhea 4. Suspect GI bleed 5. History of hiatal hernia gastritis and esophageal diverticulum Problems(with codes): (1) Generalized weakness (2) Acute abdominal pain (3) Colon cancer (4) GI bleed Plan/Recommendation 1. Follow H&H and transfuse if hemoglobin decreases below eight 2. Continue current medications 3. Consider advancing diet as tolerated 4. Hold off on colonoscopy at this time, patient states that he had colonoscopy within a year, we will attempt to retrieve this record. 5. Hold off on endoscopy at this time as he had one several months ago and there was no evidence of active GI bleeding , we will follow for evaluation of signs of bleeding 6. We will follow 7. Continue pantoprazole 8. Causing with aspirin, NSAIDs, and anticoagulants Plan discussed with: Patient GABRIELLE WINN MD Nov 19, 2024 07:37
[2024-11-19 07:45] LABS: Glucose 117 mg/dL (74-106)
[2024-11-19] MEDS: LOSARTAN POTASSIUM 25 MG TAB PO SCH (09:31)
--- NOTE | 2024-11-19 09:56 | DVHPN2 ---
Progress Note Date Seen: Nov 19, 2024 Has the PT tested + for MRSA If YES, has PT been informed?: No Medical Necessity Reason Pt with a Central, PICC or Fol: No Subjective Review of Systems Pt feels well. Denies N/V or abdominal pain. Tolerating diet. Admitted to passing flatus and having BM Objective vital signs Vital Sign Date Time Temp Pulse Resp B/P (MAP) Pulse Ox O2 Delivery O2 Flow Rate FiO2 11/19/24 09:31 110/56 11/19/24 05:00 97.6 86 16 94 97.6 11/18/24 20:00 Room Air* 0 21 Total Intake and Output 11/18/24 11/18/24 11/19/24 15:00 23:00 07:00 Intake Total 710 ml 0 ml Output Total 250 ml Balance 460 ml 0 ml medications Current Medications Medications Dose Ordered Sig/Chano Route Start Time Stop Time Status Last Admin Dose Admin Ondansetron HCl 4 mg Q4HP PRN IV 11/16/24 15:15 11/18/24 22:13 4 MG Nitroglycerin 0.4 mg Q5MINP PRN SL 11/16/24 15:15 Patient Own Medication 10 mg DAILY PO 11/17/24 10:00 Morphine Sulfate 2 mg Q2HP PRN IV 11/17/24 13:15 Hold Morphine Sulfate 2 mg Q2HP PRN IV 11/17/24 13:15 Hydralazine HCl 10 mg Q6HP PRN IV 11/18/24 13:00 11/18/24 22:23 10 MG Losartan Potassium 25 mg DAILY PO 11/19/24 10:00 11/19/24 09:31 25 MG Dextrose/Sodium Chloride 1,000 ml @ 75 mls/hr [id number] IV 11/18/24 16:30 11/19/24 06:45 75 MLS/HR Pantoprazole Sodium 40 mg BID IV 11/19/24 22:00 Examination AFVSS. Eatnig breakfast. Abdomen soft, ND and NT laboratory and microbiology Laboratory Tests 11/19/24 06:17 11/19/24 01:30 11/18/24 06:34 Test 11/19/24 06:17 Range/Units Serum Glucose 117 H 74-106 mg/dL Labs and/or images reviewed: Labs reviewed by me, Image(s) reviewed by me Problem List/Assessment/Plan Problems(with codes): (1) SBO (small bowel obstruction) Problem List/Assessment/Plan SBO. Clinically resolved. SBS report had been relayed as normal. However, upon revieweing images, there are multiple dilated contrast enhance loops. This is suspicious for a PSBO. Will get AXR, before D/C. . Continue DVT/GI prophylaxis. Recommendations will follow after AXR Plan discussed with: Patient, Other My Orders My Orders Orders - NURIS NEAL MD Procedure Category Date Status Time Kub Abdomen Single XY 11/18/24 Resulted View 10:34 Small Bowel Series-W XY 11/18/24 Resulted Gastrogra 11:52 NURIS NEAL MD Nov 19, 2024 09:56
--- NOTE | 2024-11-19 10:19 | DVH ---
Indication: SBO Technique: 2 views abdomen Comparison: Small-bowel series from 11/18/2024 FINDINGS/IMPRESSION: Contrast is seen still within the small bowel. There is contrast extending to the rectum.m dilated u p to approximately 3.5 cm. The differential considerations would include partial small bowel obstruc tion, ileus.
--- NOTE | 2024-11-19 13:33 | DVHPN2 ---
Reviewed: Care Plan, H&P, Labs, Medications, Previous Orders Changes from previous H/P or p: No Changes General: Per HPI Eyes: No Pain, No Vision change, No Conjunctivae inflammation, No Eyelid inflammation, No Other, No Redness ENT: No Ear pain, No Ear discharge, No Nose pain, No Nose discharge, No Nose congestion, No Mouth pain, No Mouth swelling, No Throat pain, No Throat swelling, No Other Cardiovascular: No Chest Pain, No Palpitations, No Orthopnea, No Paroxysmal Noc. Dyspnea, No Edema, No Lt Headedness, No Other Respiratory: No Cough, No Dry, No Shortness of breath, No SOB with excertion, No Wheezing, No Hemoptysis, No Pleuritic Pain, No Sputum, No Other Gastrointestinal: No Nausea, No Vomiting; Abdominal Pain, Diarrhea; No Constipation; Melena; No Hematochezia, No Other Genitourinary: No Dysuria, No Frequency, No Incontinence, No Hematuria, No Retention, No Other Musculoskeletal: No other, No neck pain, No shoulder pain, No arm pain, No back pain, No hand pain, No leg pain, No foot pain Skin: No Rash, No Lesions, No Jaundice, No Bruising, No Other Objective Vitals Vital Signs Date Time Temp Pulse Resp B/P (MAP) Pulse Ox O2 Delivery O2 Flow Rate FiO2 11/19/24 09:31 110/56 11/19/24 08:55 97.7 83 16 94 97.7 11/19/24 08:15 Room Air* 0 21 Intake/Output Intake and Output 11/19/24 07:00 Intake Total 710 ml Output Total 250 ml Balance 460 ml Intake Oral 710 ml Output Urine Total 250 ml # Voids 3 # Bowel Movements 11 General Appearance: Alert, Oriented X3, Cooperative Lungs: Clear to auscultation, Normal air movement Cardiovascular: Regular rate, Normal S1, Normal S2 Abdomen: Normal bowel sounds, Soft, No tenderness Extremities: No edema Medications Current Medications Medications Dose Ordered Sig/Chano Route Start Time Stop Time Status Last Admin Dose Admin Ondansetron HCl 4 mg Q4HP PRN IV 11/16/24 15:15 11/18/24 22:13 4 MG Nitroglycerin 0.4 mg Q5MINP PRN SL 11/16/24 15:15 Patient Own Medication 10 mg DAILY PO 11/17/24 10:00 Morphine Sulfate 2 mg Q2HP PRN IV 11/17/24 13:15 Hold Morphine Sulfate 2 mg Q2HP PRN IV 11/17/24 13:15 Hydralazine HCl 10 mg Q6HP PRN IV 11/18/24 13:00 11/18/24 22:23 10 MG Losartan Potassium 25 mg DAILY PO 11/19/24 10:00 11/19/24 09:31 25 MG Dextrose/Sodium Chloride 1,000 ml @ 75 mls/hr [id number] IV 11/18/24 16:30 11/19/24 06:45 75 MLS/HR Pantoprazole Sodium 40 mg BID IV 11/19/24 22:00 Laboratory Results Laboratory Tests 11/18/24 06:34 11/19/24 01:30 11/19/24 06:17 Chemistry Test 11/19/24 06:17 Calcium Level 9.7 mg/dL (8.7-10.4) Magnesium Level 1.9 mg/dL (1.6-2.6) Assessment/Plan Assessment/Plan Acute gastroenteritis, most likely viral Chronic kidney disease Hypertension History of colon cancer COPD Mitral valve prolapse Hyponatremia Rule out bowel obstruction Plan Discontinue the IV fluids Start full liquid diet and then soft diet for dinner if he tolerates it Surgical consult No need for NG tube No need for antibiotics P.r.n. hydralazine Monitor overnight and if he does well then we will discharge the patient home in the morning Full code Advance directives discussed for 20 minute 11/18/24: Abd pain, r/o SBO h/o colon CA and surgery X-Ray nonspecific Bowel series: Neg NPO Surgical consult: Dr. Arita IV fluids Losartan home dose Monitor closely Start diet and monitor 11/19/2024 advance diet as tolerated d/c when cleared by Gen SUrg Plan discussed with: Patient Date of Service: Nov 19, 2024 Billing Provider: JESSICA HARDIN DO Common Visit Codes: [id number] INP/OBS CARE(HIGH) JESSICA HARDIN DO Nov 19, 2024 13:33
[2024-11-19] MEDS ORDERED: ACETAMINOPHEN 325 MG TAB PO PRN (20:26)
[2024-11-19] MEDS: PANTOPRAZOLE 40 MG/10 ML VIAL INJ IV SCH (22:13)
[2024-11-20 05:00] VITALS: BP 156/66; PULSE 70; RESP 17; TEMP 97.9; O2SAT 96
[2024-11-20 08:00] VITALS: PULSE 75; RESP 16; O2SAT 95
[2024-11-20 09:00] VITALS: BP 141/51; PULSE 80; RESP 16; TEMP 97.2; O2SAT 93
--- NOTE | 2024-11-20 11:02 | DVHPN2 ---
Progress Note Date Seen: Nov 20, 2024 Has the PT tested + for MRSA If YES, has PT been informed?: No Medical Necessity Reason Pt with a Central, PICC or Fol: No Subjective Review of Systems Pt seen earlier today. He feels fine. Tolerating diet. Denies abdominal pain, N/V. Had postcontrast diarrhea, which is expected. Objective vital signs Vital Sign Date Time Temp Pulse Resp B/P (MAP) Pulse Ox O2 Delivery O2 Flow Rate FiO2 11/20/24 10:25 141/51 11/20/24 09:00 97.2 80 16 93 97.2 11/19/24 20:00 Room Air* 0 21 Total Intake and Output 11/19/24 11/19/24 11/20/24 15:00 23:00 07:00 Intake Total 450 ml 1666 ml 500 ml Balance 450 ml 1666 ml 500 ml medications Current Medications Medications Dose Ordered Sig/Chano Route Start Time Stop Time Status Last Admin Dose Admin Ondansetron HCl 4 mg Q4HP PRN IV 11/16/24 15:15 11/18/24 22:13 4 MG Nitroglycerin 0.4 mg Q5MINP PRN SL 11/16/24 15:15 Patient Own Medication 10 mg DAILY PO 11/17/24 10:00 Morphine Sulfate 2 mg Q2HP PRN IV 11/17/24 13:15 Hold Morphine Sulfate 2 mg Q2HP PRN IV 11/17/24 13:15 Hydralazine HCl 10 mg Q6HP PRN IV 11/18/24 13:00 11/20/24 04:57 10 MG Losartan Potassium 25 mg DAILY PO 11/19/24 10:00 11/20/24 10:25 25 MG Dextrose/Sodium Chloride 1,000 ml @ 75 mls/hr [id number] IV 11/18/24 16:30 11/19/24 18:53 75 MLS/HR Pantoprazole Sodium 40 mg BID IV 11/19/24 22:00 11/19/24 22:13 40 MG Acetaminophen 650 mg Q6HP PRN PO 11/19/24 20:26 Examination AFVSS. Abdomen soft, ND and NT. laboratory and microbiology Laboratory Tests 11/19/24 06:17 11/19/24 01:30 11/18/24 06:34 Test 11/19/24 06:17 Range/Units Serum Glucose 117 H 74-106 mg/dL Labs and/or images reviewed: Labs reviewed by me, Image(s) reviewed by me Problem List/Assessment/Plan Problems(with codes): (1) SBO (small bowel obstruction) Problem List/Assessment/Plan SBO. Clinically resolved. Follo wup AXR much improved. Pt remains asymptomatic. Diarrhea from contrast expected and self limited. Continue DVT/GI prophylaxis.May discharge home from surgical standpoint. Plan discussed with: Patient, Other (RN) NURIS NEAL MD Nov 20, 2024 11:02
[2024-11-20 13:00] VITALS: BP 109/61; PULSE 76; RESP 16; TEMP 97.7; O2SAT 96
--- NOTE | 2024-11-20 13:12 | DVHDS2 ---
Discharge Summary Date of Admission Nov 16, 2024 at 15:03 Date of Discharge: Nov 20, 2024 Labs/Diagnostic Data: Laboratory Results Test 11/19/24 06:17 11/19/24 01:30 11/18/24 10:15 11/18/24 06:34 Sodium Level 142 mmol/L (136-145) Potassium Level 4.1 mmol/L (3.5-5.1) Chloride Level 110 mmol/L (98-107) Carbon Dioxide Level 23 mmol/L (20-31) Anion Gap 9 (5-15) Blood Urea Nitrogen 22 mg/dL (9-23) Creatinine 1.38 mg/dL (0.700-1.30) Glomerular Filtration Rate Calc 51 mL/min (>90) BUN/Creatinine Ratio 15.9 (10.0-20.0) Serum Glucose 117 mg/dL (74-106) Calcium Level 9.7 mg/dL (8.7-10.4) Magnesium Level 1.9 mg/dL (1.6-2.6) Hemoglobin 12.9 g/dL (13.5-17.5) Hematocrit 39.4 % (41.0-53.0) Stool Occult Blood Sample #3 Positive (Negative) White Blood Count 4.4 10^3/uL (4.4-10.8) Red Blood Count 3.71 10^6/uL (4.5-5.90) Mean Corpuscular Volume 95.9 fL (80.0-100.0) Mean Corpuscular Hemoglobin 32.1 pg (28.0-32.0) Mean Corpuscular Hemoglobin Concent 33.5 g/dL (32.0-36.0) Red Cell Distribution Width 14.4 % (11.8-14.3) Platelet Count 159 10^3/uL (140-450) Mean Platelet Volume 9.3 fL (6.9-10.8) Neutrophils (%) (Auto) 66.4 % (37.0-80.0) Lymphocytes (%) (Auto) 16.1 % (10.0-50.0) Monocytes (%) (Auto) 12.2 % (0.0-12.0) Eosinophils (%) (Auto) 4.8 % (0.0-7.0) Basophils (%) (Auto) 0.5 % (0.0-2.0) Neutrophils # (Auto) 2.9 10 ^3/uL (1.6-8.6) Lymphocytes # (Auto) 0.7 10 ^3/uL (0.4-5.4) Monocytes # (Auto) 0.5 10 ^3/uL (0-1.3) Eosinophils # (Auto) 0.2 10 ^3/uL (0-0.8) Basophils # (Auto) 0 10 ^3/uL (0-0.2) Nucleated Red Blood Cells 0.1 % Total Bilirubin 0.7 mg/dL (0.2-1.0) Aspartate Amino Transferase (AST) 16 U/L (13-40) Alanine Aminotransferase (ALT) 10 U/L (7-40) Alkaline Phosphatase 74 U/L (46-116) Total Protein 6.6 g/dL (5.7-8.2) Albumin 4.0 g/dL (3.2-4.8) Test 11/16/24 13:24 Lipase 79 U/L (12-53) Other Laboratory Tests 11/19/24 06:17 11/19/24 01:30 11/18/24 06:34 Brief Hx & Hospital Course: Christoph Alex is an 83-year-old male with past medical history of cancer, hypertension, COPD, and mitral valve prolapse, who came in with complaints of abdominal pain and diarrhea. Patient states the diarrhea started last night 2044, continued for hours, resumed this morning, and the stool was dark and he saw blood in the stool. He states the abdominal pain began this morning. CT abdomen/pelvis showed possible small bowel obstruction. Acute gastroenteritis, most likely viral Chronic kidney disease Hypertension History of colon cancer COPD Mitral valve prolapse Hyponatremia Rule out bowel obstruction 11/17/2024 Start full liquid diet and then soft diet for dinner if he tolerates it Surgical consult No need for NG tube No need for antibiotics P.r.n. hydralazine Monitor overnight and if he does well then we will discharge the patient home in the morning Full code Advance directives discussed for 20 minute 11/18/24: Abd pain, r/o SBO h/o colon CA and surgery X-Ray nonspecific Bowel series: Neg NPO Surgical consult: Dr. Arita IV fluids Losartan home dose Monitor closely Start diet and monitor 11/19/2024 discharged to home with self care Condition at Discharge: Fair Final Diagnosis/Problems List see above Discharge Disposition: Home Discharge Instruct/Medications Diet: Cardiac 2g Na,low cholest Activity: No Restrictions, As Tolerated Discharge Statement: "Patient was advised to return to the ER or call 911 if any headaches, dizziness, shortness of breath, chest pain, abdominal pain, bleeding, fevers, or worsening of medical condition. Patient was counseled about treatment plan, medications, possible side effects, patientverbalized understanding. All questions were answered to the best of my ability. This discharge took greater then 30 minutes in planning, reviewing documentation, counseling the patient, and discussing with other team members." ASSESSMENT ASSESSMENT Assessment JESSICA HARDIN DO Nov 20, 2024 13:12
[2024-11-20 15:43] VITALS: BP 141/51; PULSE 76; RESP 16; TEMP 36.5; O2SAT 96
[2024-11-20 17:00] VITALS: BP 137/54; PULSE 90; RESP 16; TEMP 97.4; O2SAT 96
== END 2024-11-20 17:20 | disposition home or self-care (01) | DRG 389 ==
LOC: EDUNIT# 12:50 → ER 12:50 → EDBD 12:50 → OVERFLOW 15:03 → TELE-EAST 22:26
PROVIDERS: ADMIT Internal Medicine; ATTEND Internal Medicine
DX: K56.609 Unspecified intestinal obstruction, unspecified as to partial versus complete obstruction (principal); E46 Unspecified protein-calorie malnutrition; E87.1 Hypo-osmolality and hyponatremia; A08.4 Viral intestinal infection, unspecified; J44.9 Chronic obstructive pulmonary disease, unspecified; I25.10 Atherosclerotic heart disease of native coronary artery without angina pectoris; E78.5 Hyperlipidemia, unspecified; I12.9 Hypertensive chronic kidney disease with stage 1 through stage 4 chronic kidney disease, or unspecified chronic kidney disease; N18.9 Chronic kidney disease, unspecified; I34.1 Nonrheumatic mitral (valve) prolapse; Z88.0 Allergy status to penicillin; Z88.6 Allergy status to analgesic agent; Z88.8 Allergy status to other drugs, medicaments and biological substances; Z79.899 Other long term (current) drug therapy; Z68.20 Body mass index [BMI] 20.0-20.9, adult; Z85.038 Personal history of other malignant neoplasm of large intestine; Z85.820 Personal history of malignant melanoma of skin; Z88.1 Allergy status to other antibiotic agents
CPT/HCPCS: 36415; 74018; 74021; 74176; 74250; 80048; 80053; 82270; 83690; 83735; 85014; 85018; 85025; 93005; 96365; 96375; 97163; G0378; J2405; J2470; J3490